=== PATIENT | male | born 1945 | race Caucasian/White ===

== ENCOUNTER 2020-09-24 17:24 | Outpatient (CLI) | payer MEDICARE, MEDICAID, SELFPAY ==
--- NOTE | ~2020-09-24 | CT_ITS ---
EXAMINATION: CT brain wo con EXAM DATE: 09/24/2020 18:10 INDICATION: R27.0 - Ataxia, unspecified. TECHNIQUE: Spiral CT of the head was performed without contrast. Axial, coronal and sagittal images were reviewed. The dose-length product (DLP) for this examination was 384.13 mGy-cm. The exposure w as tailored according to patient size, and iterative reconstruction (ASIR) was used as additional dos e reduction technique. Comparison is made to prior examination from 2007. FINDINGS: There is no acute intraparenchymal hemorrhage. No evidence of intraparenchymal brain mass lesion. No evidence of acute infarction. Please note that initial head CT has limited sensitivity f or small or acute infarctions. There is mild periventricular and subcortical hypodensity, nonspecific but probably related to small vessel ischemic disease. There is moderate prominence of the sulci a nd ventricles related to cerebral atrophy. There is intracranial carotid arteriosclerosis. There a re no extra-axial collections. There is no mass effect or midline shift. The orbits are unremarkabl e. Soft tissue is unremarkable. The visualized sinuses and mastoid air cells are well aerated. IMPRESSION: 1. No acute intracranial findings. 2. Chronic age related findings. Reviewed, dictated and finalized at location A.
--- NOTE | ~2020-09-24 | CT_ITS ---
EXAMINATION: CT cervical spine wo con DATE: 09/24/2020 18:10 INDICATION: Neck pain. TECHNIQUE: Computed tomography (CT) of the cervical spine was performed without intravenous contrast. Automated exposure control and iterative reconstruction technique were employed. The dose-length pro duct was 384.13 mGy-cm. COMPARISON: None FINDINGS: There is 4 degrees levocurvature of cervical spine. There is developmental anterior and pos terior fusion at C5-C6. There is interbody fusion at C2-C3. There is mild chronic anterior wedging of T1 vertebral body. There is mildly decreased disc height at C3-C4 and moderately decreased disc heig ht at C6-C7. The following disc levels are specifically discussed: C2-C3: There is ankylosis of the uncovertebral joints with mild left hypertrophy. There is ankylosis of the facet joints with mild left hypertrophy. There is mild left neural foraminal stenosis. There i s no central canal stenosis. C3-C4: There is severe bilateral uncovertebral joint osteoarthritis. There is severe bilateral facet joint osteoarthritis. There is mild right and moderate left neural foraminal stenosis. There is mild central canal stenosis. C4-C5: There is severe bilateral uncovertebral joint osteoarthritis. There is mild right and severe l eft facet joint osteoarthritis. There is mild right and moderate left neural foraminal stenosis. Ther e is mild central canal stenosis. C5-C6: There is ankylosis of the uncovertebral joints without hypertrophy. There is ankylosis of the facet joints without hypertrophy. There is no neural foraminal stenosis. There is no central canal st enosis. C6-C7: There is severe bilateral uncovertebral joint osteoarthritis. There is severe bilateral facet joint osteoarthritis. There is mild right and moderate left neural foraminal stenosis. There is mild central canal stenosis. C7-T1: There is mild bilateral uncovertebral joint osteoarthritis. There is moderate right and mild l eft facet joint osteoarthritis. There is no neural foraminal stenosis. There is no central canal sten osis. IMPRESSION: 1. Moderate cervical spondylosis. 2. Anterior and posterior fusion at C2-C3 and C5-C6. Reviewed, dictated and finalized at location A.
== END 2020-09-24 17:25 | disposition home or self-care (01) ==
LOC: ANHIMG 17:29
PROVIDERS: PCP Family Medicine; Visit Provider Family Medicine
DX: G89.29 Other chronic pain (principal); R27.0 Ataxia, unspecified; M54.2 Cervicalgia; M47.812 Spondylosis without myelopathy or radiculopathy, cervical region; Z98.1 Arthrodesis status
CPT/HCPCS: 70450; 72125

== ENCOUNTER → 2021-04-05 09:16 | Outpatient (CLI) | payer MEDICARE, MEDICAID, SELFPAY ==
[2021-04-05 21:56] LABS: SARS-CoV-2 RNA PCR Positive
== END ==
PROVIDERS: PCP Family Medicine; Visit Provider Family Medicine
DX: U07.1 COVID-19 (principal); J01.00 Acute maxillary sinusitis, unspecified
CPT/HCPCS: C9803; U0003; U0005

== ENCOUNTER 2022-12-03 12:08 | Outpatient (CLI) | payer MEDICARE, MEDICAID, SELFPAY ==
[2022-12-03 12:45] LABS: Hematocrit 35.8 % (42.0-52.0); Hemoglobin 11.5 g/dL (14.0-18.0); Mean Corpuscular HGB Conc 32.1 g/dl (32-36); Mean Corpuscular Hemoglobin 29.4 pg (26-34); Mean Corpuscular Volume 91.6 fl (80-100); Platelet Count Result 196 k/mm3 (150-375); Red Blood Count 3.91 M/mm3 (4.6-6.20); Red Cell Distribution Width 12.7 % (11.5-14.5); White Blood Count 7.2 K/mm3 (4.5-10.0)
== END 2022-12-03 12:09 | disposition home or self-care (01) ==
LOC: ANHLAB 12:11
PROVIDERS: PCP Family Medicine; Visit Provider Nurse Practitioner
DX: K92.1 Melena (principal)
CPT/HCPCS: 36415; 85027

== ENCOUNTER 2023-01-07 00:33 | Day surgery (SDC) | payer MEDICARE, MEDICAID, SELFPAY ==
[2022-12-25 13:34] VITALS: BMI 27.6
[2023-01-07 07:59] VITALS: BP 146/74; PULSE 102; RESP 20; TEMP 36.2; O2SAT 99
[2023-01-07] MEDS: LACTATED RINGERS 1,000 ML 150 ML IV CONT (08:21)
[2023-01-07 08:26] LABS: Glucose Point of Care 114 mg/dl (65-105)
--- NOTE | 2023-01-07 08:35 | WPDANESEPPF ---
Anes - Initial Pre Proc Eval Procedure: Operation Date: 01/07/23 09:15 Proposed Procedures p Esophagogastroduodenoscopy & Colonoscopy - Logan Chung MD Date/Time: 01/07/23 08:35 Surgeon: Logan Chung MD Pre Op Diagnosis: melena, diarrhea, Patient Data Age: 77 Gender: M Height: 1.83 m Weight: 88.8 kg Last Vital Signs Temp 97.2 F L 01/07/23 07:59 Pulse 102 H 01/07/23 07:59 Resp 20 01/07/23 07:59 BP 146/74 H 01/07/23 07:59 Pulse Ox 99 01/07/23 07:59 O2 Del Method Room Air 01/07/23 07:59 Allergies Allergy/AdvReac Type Severity Reaction Status Date / Time codeine Allergy Mild Unknown Verified 01/07/23 07:57 morphine AdvReac Drowsy Verified 01/07/23 07:57 Home Medications Medication Instructions Recorded Confirmed Type blood-glucose meter (Paperless Transaction ManagementTouch #1 ea 06/23/19 12/25/22 History Ultra2 Meter kit) losartan 100 mg tablet 100 mg PO . Q.p.m. 11/20/21 12/25/22 History albuterol sulfate 90 mcg/actuation 2 puff inhalation Q4H PRN 03/27/22 12/25/22 Rx aerosol inhaler (ProAir HFA) shortness of breath or wheezing #18 grams atorvastatin 40 mg tablet 40 mg PO DAILY #30 tabs 03/27/22 12/25/22 Rx blood sugar diagnostic #100 ea 03/27/22 12/25/22 Rx lancets 30 gauge (OneTouch Delica #100 ea 03/27/22 12/25/22 Rx Plus Lancet) needle (disp) 22 G 22 gauge x 1 #6 ea 03/27/22 12/03/22 Rx 1/2 (BD Regular Bevel Mobridge) syringe with needle 3 mL 21 gauge See Rx Instructions .Route 03/27/22 12/25/22 Rx x 1 1/2 (BD Luer-Jh Syringe) .COMPLEX #6 syringes syringe with needle 5 mL 22 x 1 #6 ea 03/27/22 12/03/22 Rx (BD Luer-Jh Syringe) blood-glucose sensor (Dexcom G6 #3 ea 05/29/22 12/25/22 Rx Sensor device) amlodipine 5 mg tablet 5 mg PO DAILY 07/14/22 12/25/22 History semaglutide 0.25 mg or 0.5 mg (2 0.5 mg (0.736 mL) subcut WEEKLY #6 07/22/22 12/25/22 Rx mg/3 mL) subcutaneous pen injector mL (Ozempic) tamsulosin 0.4 mg capsule 0.4 mg PO DAILY #30 caps 08/26/22 12/25/22 Rx mupirocin 2 % topical ointment 1 applic topical BID #22 grams 09/01/22 12/25/22 Rx lancets (Accu-Chek Softclix #200 ea 09/05/22 12/25/22 Rx Lancets) alprazolam 0.25 mg tablet 0.25 mg PO TID PRN anxiety #90 tabs 09/24/22 12/25/22 Rx duloxetine 60 mg capsule,delayed 60 mg PO . Q.a.m. #90 caps 10/20/22 12/25/22 Rx release memantine 10 mg tablet (Namenda) 10 mg PO QPM 10/20/22 12/25/22 History silver sulfadiazine 1 % topical 1 applic topical BID #50 grams 10/20/22 12/25/22 Rx cream (Silvadene) blood sugar diagnostic (Accu-Chek #200 ea 12/09/22 12/25/22 Rx Kierra Plus test strips) omeprazole 40 mg capsule,delayed 40 mg PO DAILY 12/09/22 12/25/22 History release oxycodone 5 mg tablet 5 - 10 mg PO Q4H PRN pain #180 tabs 12/17/22 12/25/22 Rx oxycodone myristate 36 mg capsule 36 mg PO Q12H #60 caps 12/17/22 12/25/22 Rx sprinkle extended release 12hr(DON'T CRUSH) (Xtampza ER) empagliflozin 25 mg tablet 25 mg PO DAILY 12/25/22 12/25/22 History (Jardiance) Laboratory Tests 01/07/23 08:23 POC Capillary Glucose 114 H mg/dl (65-105) Patient hx anesthesia problems: none Family hx anesthesia problems: none Results Review: All pre-operative results and documents have been reviewed as part of the pre-operative evaluation. [facility] Past Medical History Medical History (Updated 12/09/22 @ 21:09 by Justin Lange MD) Acute non-recurrent maxillary sinusitis Anemia hemoglobin 11.5 10/08/2022. At high risk for falls (~09/25/21) Ataxia Belching Benign paroxysmal positional vertigo due to bilateral vestibular disorder BMI 30.0-30.9,adult BMI 33.0-33.9,adult BMI 34.0-34.9,adult BMI 35.0-35.9,adult Candidiasis Chronic anxiety Chronic bilateral low back pain with bilateral sciatica Chronic depression Chronic ear pain Chronic midline thoracic back pain Chronic neck pain Complaint of melena Controlled diabetes mellitus, without long-term curr
--- NOTE | 2023-01-07 08:45 | PM.HPGS ---
History of Present Illness History of Present Illness Consent: Risks, benefits, and alternatives have been discussed and questions answered. Patient agrees to proceed with procedure. Chief complaint: melena, diarrhea, Narrative: Tyler Thomas is a 77 year old male with melena for 5 days about 1 month, now resolved. Also needs screening colonoscopy, last one 10 years ago. Never had EGD. Review of Systems Constitutional: Constitutional: Denies headache(s) and Denies weakness Eyes: Eyes: Denies blurry vision ENT: Reports Normal hearing present, Denies headache(s) and Denies neck pain Cardiovascular: Cardiovascular: Denies chest pain and Denies dyspnea Respiratory: Respiratory: Denies dyspnea Gastrointestinal: Gastrointestinal: Reports no additional gastrointestinal complaints Genitourinary: Genitourinary: Denies dysuria Musculoskeletal: Musculoskeletal: Denies neck pain Integumentary/Breasts: Skin/Breast: Denies dry skin Neurologic: Reports Normal hearing present, Denies headache(s) and Denies weakness Psychiatric: Psychiatric: Denies anxiety Endocrine: Endocrine: Denies change in body appearance Hematologic/Lymphatic: Hematologic/Lymphatic: Denies easy bleeding Allergic/Immunologic: Allergic/Immunologic: Denies urticaria [facility] Past Medical History Medical History (Updated 12/09/22 @ 21:09 by Justin Lange MD) Acute non-recurrent maxillary sinusitis Anemia hemoglobin 11.5 10/08/2022. At high risk for falls (~09/25/21) Ataxia Belching Benign paroxysmal positional vertigo due to bilateral vestibular disorder BMI 30.0-30.9,adult BMI 33.0-33.9,adult BMI 34.0-34.9,adult BMI 35.0-35.9,adult Candidiasis Chronic anxiety Chronic bilateral low back pain with bilateral sciatica Chronic depression Chronic ear pain Chronic midline thoracic back pain Chronic neck pain Complaint of melena Controlled diabetes mellitus, without long-term current use of insulin Glucose 103 with hemoglobin A1c 5.8 with Urine microalbumin ratio of 4 the in 09/27/2021. Glucose 127 on 03/28/2022. fasting glucose 111 with hemoglobin A1c 5.9 on 10/08/2022. Coronary artery disease involving [place] coronary artery without angina pectoris COVID-19 (03/11/20) COVID-19 (~03/30/21) 2nd episode of COVID-19 with positive test on 04/05/2021 Diabetes mellitus Diarrhea Dysphagia Elevated TSH (10/08/22) TSH elevated at 5.71 on 10/08/2022. Encounter for hepatitis C screening test for low risk patient (09/27/21) Hepatitis C screening was negative on 09/27/2021. Essential (primary) hypertension Starting 2004 Family hx of colon cancer Colonoscopy [address] Cristobal with diverticulosis and hemorrhoids. Gas bloat syndrome Gastro-esophageal reflux disease without esophagitis Hyperkalemia (03/28/22) potassium slightly high at 5.4 on 03/28/2022. Hypogonadism male No improvement with testosterone with current level low at 11 with free testosterone 1 without treatment on 10/08/2022 Male erectile dysfunction, unspecified Memory loss or impairment Mixed hyperlipidemia total cholesterol 118, triglycerides 119, HDL low at 28 and LDL 69 on 09/27/2021. Nocturia PSA normal at 0.18 On 09/27/2021. Obesity (BMI 30-39.9) Obesity (BMI 30.0-34.9) HIPOLITO on CPAP (~09/29/22) home sleep study on 09/29/2022 reveals HIPOLITO with an AHI of 11.1 with AHI of 24.7 in the supine position and oxygen saturation on 83%. Start a Pap at 6-18 cm of water pressure 10/02/2022. never started CPAP Pressure ulcer of right buttock, stage 2 (~10/20/22) 1.5 cm pressure ulcer right lower buttocks midline Renal insufficiency, mild (09/27/21) BUN 33, creatinine 1.56 with GFR 46 on 09/27/2021. BUN 48, creatinine 1.92 with GFR 35 on 03/28/2022. BUN 24, creatinine 1.31 with GFR 56 on 10/08/2022. Screening for diabetic retinopathy no retinopathy 09/09/2022. Seasonal allergic rhinitis Skin ulcer (~09/10/20) ulceration inside umbilicus Vitamin B12 deficiency anemia Level low at 377 with hemo
[2023-01-07] MEDS: BENZOCAINE (*SP) 60 ML SPRAY CAN (HURRICAINE) 1 SPRAY MUCOUS MEM (08:57)
--- NOTE | 2023-01-07 09:26 | SUR.OPER ---
EGD: [id number] COLON: Start: 907
[2023-01-07 09:30] VITALS: BP 92/47; PULSE 90; RESP 19; O2SAT 100
[2023-01-07 09:40] VITALS: BP 107/48; PULSE 86; RESP 22; O2SAT 100
[2023-01-07 09:50] VITALS: BP 132/63; PULSE 84; RESP 26; O2SAT 100
[2023-01-07 10:00] LABS: Glucose Point of Care 98 mg/dl (65-105)
== END 2023-01-07 10:02 | disposition home or self-care (01) ==
PROVIDERS: PCP Family Medicine; Visit Provider Internal Medicine Gastroenterology
PROC: 0DJ08ZZ Inspection of Upper Intestinal Tract, Via Natural or Artificial Opening Endoscopic (ICD-10-PCS; CPT 43235; principal; 2023-01-07 09:15)
DX: R19.7 Diarrhea, unspecified (principal); D12.2 Benign neoplasm of ascending colon; D12.0 Benign neoplasm of cecum; K57.30 Diverticulosis of large intestine without perforation or abscess without bleeding; K64.8 Other hemorrhoids; K21.9 Gastro-esophageal reflux disease without esophagitis; Z80.0 Family history of malignant neoplasm of digestive organs; E11.9 Type 2 diabetes mellitus without complications; I10 Essential (primary) hypertension; F41.9 Anxiety disorder, unspecified; F32.A Depression, unspecified; E78.2 Mixed hyperlipidemia; N28.9 Disorder of kidney and ureter, unspecified; E55.9 Vitamin D deficiency, unspecified; D51.9 Vitamin B12 deficiency anemia, unspecified; Z79.51 Long term (current) use of inhaled steroids; Z79.85 Long-term (current) use of injectable non-insulin antidiabetic drugs; Z79.84 Long term (current) use of oral hypoglycemic drugs; Z79.891 Long term (current) use of opiate analgesic
CPT/HCPCS: 45380; 45385; 43239; 82948; 88305; J2371; J2704; J7120

== ENCOUNTER 2023-03-02 11:45 | Emergency (ER) | payer MEDICARE, MEDICAID, SELFPAY ==
--- NOTE | ~2023-03-02 | XR_ITS ---
Left foot Technique: AP, oblique, and lateral views were obtained. Clinical History: Pain Findings: No acute fracture or dislocation is seen. Osseous alignment is anatomic. There is moderate degenerative change of the first tarsometatarsal joint. Soft tissues are unremarkable. Impression: Moderate degenerative change of the first tarsometatarsal joint. Reviewed, dictated and finalized at location . E IN WAITER/WAITRESS Impression: Moderate degenerative change of the first tarsometatarsal joint.
[2023-03-02 11:58] VITALS: BP 144/70; PULSE 79; RESP 16; TEMP 36.7; O2SAT 98
--- NOTE | 2023-03-02 12:07 | ED.GENADULT ---
HPI - General Adult General Chief complaint: Extremity Injury, Lower Stated complaint: Foot Pain Time Seen by Provider: 03/02/23 12:09 Source: patient, family, RN notes reviewed and old records reviewed Mode of arrival: ambulatory Limitations: no limitations History of Present Illness HPI narrative: 77-year-old male presents to [facility] accompanied by family member with complaints of continued pain behind his left big toe at first medial tarsometatarsal joint area with palpable tenderness and slight redness for the past 10 days. Patient reports that pain is aggravated by walking rates his pain as 7/10. Patient saw PCP and was given Prednisone for gout flare on the 11 of February for 7 days and completed prescription but pain has not resolved. Patient reports that he has taken some Tylenol also for his discomfort and is on daily pain medication for chronic back pain. MD complaint: left foot pain Onset (ago): day(s) (increased pain 10 days) Location: left and lower extremity (foot) Severity scale (1-10): 7 Pain Consistency: constant Treatments prior to arrival: other (completed Prednisone, Tylenol) Related Data Home Medications Medication Instructions Recorded Confirmed blood-glucose meter (OANDAuch #1 ea 06/23/19 12/25/22 Ultra2 Meter kit) losartan 100 mg tablet 100 mg PO . Q.p.m. 11/20/21 03/02/23 amlodipine 5 mg tablet 5 mg PO DAILY 07/14/22 03/02/23 memantine 10 mg tablet (Namenda) 10 mg PO QPM 10/20/22 03/02/23 omeprazole 40 mg capsule,delayed 40 mg PO DAILY 12/09/22 03/02/23 release sertraline 100 mg tablet 100 mg PO DAILY 03/02/23 03/02/23 sertraline 50 mg tablet 50 mg PO DAILY 03/02/23 03/02/23 Allergies Allergy/AdvReac Type Severity Reaction Status Date / Time codeine Allergy Mild Unknown Verified 03/02/23 11:52 morphine AdvReac Drowsy Verified 03/02/23 11:52 Review of Systems Review of Systems: CONSTITUTIONAL: Denies fever, chills, or sweats. EYES: Denies visual changes, redness, or discharge. ENT: Denies rhinorrhea, congestion, sore throat, or otalgia. CARDIOVASCULAR: Denies chest pain, palpitations, or edema. RESPIRATORY: Denies cough or dyspnea. GASTROINTESTINAL: Denies abdominal pain, nausea, vomiting, or diarrhea. GENITOURINARY: Denies dysuria or hematuria. SKIN: Denies rash or itching. MUSCULOSKELETAL: Reports chronic back pain,reports pain to left medial 1st toe joint, or myalgia. NEUROLOGIC: Denies headache, numbness, or weakness. PSYCHIATRIC: Reports history of anxiety or depression. All systems reviewed & are unremarkable except as noted in HPI and below PMFSH Past Medical History Medical History Acute non-recurrent maxillary sinusitis Anemia hemoglobin 11.5 10/08/2022. At high risk for falls (~09/25/21) Ataxia Belching Benign paroxysmal positional vertigo due to bilateral vestibular disorder BMI 30.0-30.9,adult BMI 33.0-33.9,adult BMI 34.0-34.9,adult BMI 35.0-35.9,adult Candidiasis Chronic anxiety Chronic bilateral low back pain with bilateral sciatica Chronic depression Chronic ear pain Chronic midline thoracic back pain Chronic neck pain Complaint of melena Controlled diabetes mellitus, without long-term current use of insulin Glucose 103 with hemoglobin A1c 5.8 with Urine microalbumin ratio of 4 the in 09/27/2021. Glucose 127 on 03/28/2022. fasting glucose 111 with hemoglobin A1c 5.9 on 10/08/2022. Coronary artery disease involving [place] coronary artery without angina pectoris COVID-19 (03/11/20) COVID-19 (~03/30/21) 2nd episode of COVID-19 with positive test on 04/05/2021 Diabetes mellitus Diarrhea Dysphagia normal EGD on 01/07/2023. Elevated TSH (10/08/22) TSH elevated at 5.71 on 10/08/2022. Encounter for hepatitis C screening test for low risk patient (09/27/21) Hepatitis C screening was negative on 09/27/2021. Essential (primary) hypertension Starting 2004 Family hx of colon cancer Colonoscopy 2012 with
== END 2023-03-02 13:20 | disposition home or self-care (01) ==
PROVIDERS: Emergency Provider Registered Nurse; PCP Family Medicine
DX: M25.572 Pain in left ankle and joints of left foot (principal); M19.072 Primary osteoarthritis, left ankle and foot; K21.9 Gastro-esophageal reflux disease without esophagitis; E78.2 Mixed hyperlipidemia; F41.9 Anxiety disorder, unspecified; F32.A Depression, unspecified; E11.9 Type 2 diabetes mellitus without complications; Z79.4 Long term (current) use of insulin; I25.10 Atherosclerotic heart disease of native coronary artery without angina pectoris; Z86.16 Personal history of COVID-19; I10 Essential (primary) hypertension; E66.9 Obesity, unspecified; Z68.27 Body mass index [BMI] 27.0-27.9, adult; D51.9 Vitamin B12 deficiency anemia, unspecified
CPT/HCPCS: 73630; 99213; G0463

== ENCOUNTER 2023-08-21 15:22 | Emergency (ER) | payer MEDICARE, MEDICAID, SELFPAY ==
[2023-08-21 15:35] VITALS: BP 115/61; PULSE 98; RESP 16; TEMP 36.3; O2SAT 99
--- NOTE | 2023-08-21 15:47 | ED.EXTPRO ---
HPI - Extremity Problem General Chief complaint: Extremity Problem,Nontraumatic Stated complaint: L FOOT INFECTION Time Seen by Provider: 08/21/23 15:33 Source: patient and RN notes reviewed Mode of arrival: ambulatory Limitations: no limitations History of Present Illness HPI Narrative: Patient presents today with a 2-3 week history of pain and injury to the left heel, plantar aspect. Believes he may have stepped on something when he got out of his bed to go to the restroom in the middle of the night. Reports symptoms have been worsening since onset. He takes oxycodone daily for his chronic back pain and states this is not helping with his acute pain. Patient does have a sales forecast analyst, Dr. Peralta in [place], but has not called for an appointment. History of diabetes, chronic kidney disease, chronic back pain Related Data Home Medications Medication Instructions Recorded Confirmed blood-glucose meter (OneTouch #1 ea 06/23/19 04/28/23 Ultra2 Meter kit) losartan 100 mg tablet 100 mg PO . Q.p.m. 11/20/21 08/21/23 memantine 10 mg tablet (Namenda) 10 mg PO QPM 10/20/22 08/21/23 sertraline 100 mg tablet 100 mg PO DAILY 03/02/23 08/21/23 Allergies Allergy/AdvReac Type Severity Reaction Status Date / Time codeine Allergy Mild Unknown Verified 08/21/23 15:30 morphine AdvReac Drowsy Verified 08/21/23 15:30 Review of Systems Review of Systems: CONSTITUTIONAL: Denies body aches, fever, chills, or sweats. EYES: Denies visual changes, redness, or discharge. ENT: Denies rhinorrhea, congestion, sore throat, or otalgia. CARDIOVASCULAR: Denies chest pain, palpitations, or edema. RESPIRATORY: Denies cough or dyspnea. GASTROINTESTINAL: Denies abdominal pain, nausea, vomiting, or diarrhea. GENITOURINARY: Denies dysuria or hematuria. SKIN: Wound to left foot MUSCULOSKELETAL: Denies back pain, joint pain, or myalgia. NEUROLOGIC: Denies headache, numbness, tingling, or weakness. PSYCH: Denies depression or anxiety. [facility] Past Medical History Medical History Acute non-recurrent maxillary sinusitis Anemia hemoglobin 11.5 10/08/2022. At high risk for falls (~09/25/21) Ataxia Belching Benign paroxysmal positional vertigo due to bilateral vestibular disorder Black stools BMI 30.0-30.9,adult BMI 33.0-33.9,adult BMI 34.0-34.9,adult BMI 35.0-35.9,adult Candidiasis Chronic anxiety Chronic bilateral low back pain with bilateral sciatica Chronic depression Chronic ear pain Chronic midline thoracic back pain Chronic neck pain Chronic pain in left foot Complaint of melena Controlled diabetes mellitus, without long-term current use of insulin Glucose 103 with hemoglobin A1c 5.8 with Urine microalbumin ratio of 4 the in 09/27/2021. Glucose 127 on 03/28/2022. fasting glucose 111 with hemoglobin A1c 5.9 on 10/08/2022. Coronary artery disease involving [place] coronary artery without angina pectoris COVID-19 (03/11/20) COVID-19 (~03/30/21) 2nd episode of COVID-19 with positive test on 04/05/2021 Diabetes mellitus Diarrhea Dysphagia normal EGD on 01/07/2023. Elevated TSH (10/08/22) TSH elevated at 5.71 on 10/08/2022. Encounter for hepatitis C screening test for low risk patient (09/27/21) Hepatitis C screening was negative on 09/27/2021. Essential (primary) hypertension Starting 2004 Family hx of colon cancer Colonoscopy [address] Cristobal with diverticulosis and hemorrhoids. Three small polyps , tubular adenomas, on colonoscopy 01/07/2023. Foot pain Gas bloat syndrome Gastro-esophageal reflux disease without esophagitis Hyperkalemia (03/28/22) potassium slightly high at 5.4 on 03/28/2022. Hypogonadism Hypogonadism male No improvement with testosterone . with current level low at 11 with free testosterone 1 without treatment on 10/08/2022. testosterone less than 10 with free testosterone 0.2 on 03/23/2023. Male erectile dysfunction, unspecified Memory loss or imp
== END 2023-08-21 15:52 | disposition home or self-care (01) ==
PROVIDERS: Emergency Provider Nurse Practitioner; PCP Family Medicine
DX: L84 Corns and callosities (principal); E11.9 Type 2 diabetes mellitus without complications; I25.10 Atherosclerotic heart disease of native coronary artery without angina pectoris; I10 Essential (primary) hypertension; K21.9 Gastro-esophageal reflux disease without esophagitis; E78.2 Mixed hyperlipidemia; E66.9 Obesity, unspecified; Z68.29 Body mass index [BMI] 29.0-29.9, adult; G47.33 Obstructive sleep apnea (adult) (pediatric); F41.9 Anxiety disorder, unspecified; F32.A Depression, unspecified
CPT/HCPCS: 99213; G0463

== ENCOUNTER 2024-07-27 09:29 | Outpatient (CLI) | payer MEDICARE, MEDICAID, SELFPAY ==
--- OUTSIDE RECORDS SUMMARY | 2024-07-27 09:40 | XMS_ITS | Clinical Summary ---
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:57 PM PCB DESIGNER Gender Identity Not on file Sexual Orientation Not on file Plan of Treatment Health Maintenance Due Date Last Done Comments Hepatitis C Virus (HCV) Screening 1945 TdaP Immunization 1945 Pneumococcal Immunization (5 0+ years) (1 of 1 - PCV) 1995 Zoster Immunization (1 of 2) 1995 Respiratory Syncytial Virus (RSV) Immunization (Adult) (1 - 1-dose 75+ series) 2020 Influenza Immunization (#1) 11/15/202312/14, 01/26/2013 SARS-COV-2 Immunization ( - season) 2023 Hepatitis B Immunization Aged Out No longer eligible based on patient's age to complete this topic Meningococcal Immunization (ACWY) Aged Out No longer eligible b ased on patient's age to complete this topic Rotavirus Immunization Aged Out No lo nger eligible based on patient's age to complete this topic
--- OUTSIDE RECORDS SUMMARY | 2024-07-27 09:40 | XMS_ITS ---
Author Organization [facility] Address [address] [place] [address] Care Team Providers Care Financial Reporting Consultant Name Role Phone Steven Montoya Unavailable [phone] SOCIAL HISTORY Sex Assigned At : Social History Observation Description Sex Assigned At Male Encounters Encounter Location Date Provider Diagnosis [place] [facility] 2043 [facility] 15 [place] [address] 06/15/2024 Steven Montoya PLAN OF TREATMENT Next Appt Details Provider Name:Steven Montoya , 08/24/2024 03:00:00 PM, [facility], [facility], [place], [address], Progress Notes * COREY PACHECODOB:1945 ( 79 yo M)Acc No.[id number]:06/15/2024 Progress Notes Patient: COREY PACHECO Provider: MD RYLAN, StaceyC.P, F.A.S.N. :1945 Age:79 Y Sex:Male Date:06/15/2024 Address:[address] [place] [address] Subjective: * Chief Complaints: * * Medical History: Objective: Assessment: Plan: * Treatment: * Billing Information: * Visit Code: * Procedure Codes: * Sign off status: Pending * Provider: MD RYLAN, Floyd.C.P, F.A.S.N. Date: 06/15/2024
--- OUTSIDE RECORDS SUMMARY | 2024-07-27 09:40 | XMS_ITS ---
Author Organization [facility] Address [address] [place] [address] Care Team Providers Care Roller Hand Name Role Phone JanMikeySteven Unavailable [phone] SOCIAL HISTORY Sex Assigned At : Social History Observation Description Sex Assigned At Male PROBLEMS Problem Type ICD Code Onset Dates Problem Status W/U Status Risk SNOMED Code Notes Problem Hyperkalemia (E87.5) Active confirmed Hyperkalemia (52535369) Problem Hypo-osmolality and hyponatremia (E87.1) Active confirmed Hypo-osmolality and or hyponatremia (389574544) Problem Post-traumatic stress disorder, unspecified (F43.10) Active confirmed Encounters Encounter Location Date Provider Diagnosis [place] [facility] 2043 [facility] 15 [place] [address] 06/22/2024 Steven Montoya Chronic kidney disea se, stage 3a N18.31 ; Essential hypertension I10 ; Unspecified systolic (congestive) heart failure I50.20 ; Renal osteodystrophy N25.0 ; Proteinuria, unspecified R80.9 ; Unspecified abdominal pain R10.9 ; Type 2 diabetes mellitus with hyperglycemia E11.65 ; Gastro-esophageal reflux disease without esophagitis K21.9 ; Hyperkalemia E87.5 ; Hypo-osmolality and hyponatremia E87.1 and Post-traumatic stress disorder, unspecified F43.10 ASSESSMENTS Encounter Date Diagnosis Assessment Notes Treatment Notes Treatment Clinical Notes [...] Post-traumatic stress disorder, unspecified (ICD-10 - F43.10) PLAN OF TREATMENT Next Appt Details Provider Name:Steven Jan , 08/24/2024 03:00:00 PM, [address], [facility] [place], Progress Notes * COREY PACHECODOB:1945 ( 79 yo M)Acc No.[id number]:06/22/2024 Progress Notes Patient: COREY PACHECO Provider: MD RYLAN, F.A.C.P, F.A.S.N. :1945 Age:79 Y Sex:Male Date:06/22/2024 Address:[address] [place] [address] Subjective: * Chief Complaints: * * Medical History: Objective: Assessment: * Assessment: 1. Chronic kidney disease, stage 3a - N18.31 (Primary) 2. Essential hypertension - I10 3. Unspecified systolic (congestive) heart failure - I50.20 4. Renal osteodystrophy - N25.0 5. Proteinuria, unspecified - R80.9 6. Unspecified abdominal pain - R10.9 7. Type 2 diabetes mellitus with hyperglycemia - E11.65 8. Gastro-esophageal reflux disease without esophagitis - K21.9 9. Hyperkalemia - E87.5 10. Hypo-osmolality and hyponatremia - E87.1 11. Post-traumatic stress disorder, unspecified - F43.10 Plan: * Treatment: * Billing Information: * Visit Code: 26129 Office Visit, Est Pt., Level 4. * Procedure Codes: * Sign off status: Pending * Provider: MD RYLAN, F.A.C.P, F.A.S.N. Date: 06/22/2024
--- OUTSIDE RECORDS SUMMARY | 2024-07-27 09:41 | XMS_ITS | Patient Health Record ---
Author Organization [facility] Office Address [address] [facility] [address] [place] [address] Care Team Providers Care Art Historian Name Role Phone Steven Montoya Unavailable [phone] REASON FOR REFERRAL No Information MEDICATIONS Medication SIG (Take, Route, Frequency, Duration) Notes Start Date End Date Status Calcitriol 0.25 MCG TAKE 1 CAPSULE BY MO UTH EVERY OTHER DAY for 30 Active Magnesium Oxide -Mg Supplement 400 (240 Mg) MG TAKE 1 TABLET BY MOUTH TWICE A DAY for 30 Active amLODIPine Besylate 2.5 MG 1 tablet Orally Once a day for 90 days 04/03/2023 Active Calcitriol 0.25 MCG 1 capsule Orally Onc e a day for 90 day(s) 04/20/2024 01/15/2025 Active Vitamin D (Ergocalciferol) 1.25 MG (31300 UT) TAKE 1 CAPSULE BY MOUTH EVERY OTHER WEEK for 28 Active Sodium Chloride 1 GM 1 tablet Orally onc e a day for 90 days 12/11/2023 09/06/2024 Active SOCIAL HISTORY Sex Assigned At : Social History Observation Description Sex Assigned At Male PROBLEMS Problem Type ICD Code Onset Dates Problem Status W/U Status Risk SNOMED Code Notes Problem Type 2 diabetes mellitus with hyperglycemia (E11.65) Active confirmed Hyperglycemia d ue to type 2 diabetes mellitus (301481142583587) Problem Hypo-osmolality and hyponatremia (E87.1) Active confirmed Hypo-osmolality and or hyponatremia (047557435) Problem Hyperkalemia (E87.5) Active confirmed Hyperkalemia (21788585) Problem Post-traumatic stress disorder, unspecified (F43.10) Active confirmed Post-traumatic stress disorder (95725514) Problem Unspecified systolic (congestive) heart failure (I50.20) Active confirmed Systolic heart failure (507189007) Problem Gastro-esophageal reflux disease without esophagitis (K21.9) Active confirmed Gastro-esophage al reflux disease without esophagitis (524147427) Problem Renal osteodystrophy (N25.0) Active confirmed Renal osteodystrophy (55189969) Problem Unspecified abdominal pain (R10.9) Active confirmed Abdominal pain (85155626) Problem Proteinuria, unspecified (R80.9) Active confirmed Proteinuria (13056114) Problem Essential hypertension (I10) Active confirmed Essential hypertension (72749892) Problem Chronic kidney disease, stage 3a (N18.31) Active confirmed Chronic kidney disease stage 3A (disorder) (191561486) Encounters Encounter Location Date Provider Diagnosis [facility] [address] [address] 09/16/2023 Steven Montoya Chronic kidney disea se, stage 3a N18.31 ; Essential hypertension I10 ; Heart failure, unspecified I50.9 ; Other proteinuria R80.8 ; Renal osteodystrophy N25.0 ; Proteinuria, unspecified R80.9 ; Unspecified abdominal pain R10.9 and Type 2 diabetes mellitus with hyperglycemia E11.65 [facility] [address] [address] 11/18/2023 Steven oMntoya [facility] [address] [address] 12/11/2023 Steven Montoya Chronic kidney disea se, stage 3a N18.31 ; Essential hypertension I10 ; Heart failure, unspecified I50.9 ; Other proteinuria R80.8 ; Renal osteodystrophy N25.0 ; Proteinuria, unspecified R80.9 ; Unspecified abdominal pain R10.9 and Type 2 diabetes mellitus with hyperglycemia E11.65 [facility] [address] [address] 02/26/2024 Steven Montoya [facility] [address] [address] 04/20/2024 Steven Montoya Chronic kidney disea se, stage 3a N18.31 ; Essential hypertension I10 ; Hypo-osmolality and hyponatremia E87.1 ; Unspecified systolic (congestive) heart failure I50.20 ; Glycosuria R81 ; Hyperkalemia E87.5 and Gastro-esophageal reflux disease without esophagitis K21.9 [facility] [address] [address] 06/15/2024 [facility] [address] [place] [address] 06/22/2024 Steven Montoya Chronic kidney disea se, stage 3a N18.31 ; Essential hypertension I10 ; Unspecified systolic (congestive) heart failure I50.20 ; Renal osteodystrophy N25.0 ; Proteinuria, unspecified R80.9 ; Unspecified abdominal pain R10.9 ; Type 2 diabetes mellitus with hyperglycemia E11.65 ; Gastro-esophageal reflux disease without esophagitis K21.9 ; Hyperkalemia E87.5 ; Hypo-osmolality and hyponatremia E87.1 and Post-traumatic stress disorder, unspecified F43.10 [facility] [place] [facility] [address] [place] [address] 02/08/2024 Steven Montoya [facility] [place] [facility] [address] [place] [address] 03/22/2024 Steven Montoya [facility] [address] [place] [address] 04/20/2024 Steven Montoya [facility] [address] [place] [address] 09/16/2023 Steven Montoya [facility] [place] [facility] [address] [place] [address] 12/11/2023 Steven Montoya ASSESSMENTS Encounter Date Diagnosis Assessment Notes Treatment Notes Treatment Clinical Notes Section Notes 09/16/2023 Chronic kidney disease, stage 3a (ICD-10 - N18.31) 12/11/2023 Chronic kidney disease, stage 3a (ICD-10 - N18.31) 04/20/2024 Essential hypertension (ICD-10 - I10) 04/20/2024 Chronic kidney disease, stage 3a (ICD-10 - N18.31) 06/22/2024 Chronic kidney disease, stage 3a (ICD-10 - N18.31) 06/22/2024 Essential hypertension (ICD-10 - I10) 12/11/2023 Essential hypertension (ICD-10 - I10) 04/20/2024 Hypo-osmolality and hyponatremia (ICD-10 - E87.1) 09/16/2023 Essential hypertension (ICD-10 - I10) 09/16/2023 Heart failure, unspecified (ICD-10 - I50.9) 04/20/2024 Unspecified systolic (congestive) heart failure (ICD-10 - I50.20) 12/11/2023 Heart failure, unspecified (ICD-10 - I50.9) 06/22/2024 Unspecified systolic (congestive) heart failure (ICD-10 - I50.20) 06/22/2024 Renal osteodystrophy (ICD-10 - N25.0) 04/20/2024 Glycosuria (ICD-10 - R81) 12/11/2023 Other proteinuria (ICD-10 - R80.8) 09/16/2023 Other proteinuria (ICD-10 - R80.8) 09/16/2023 Renal osteodystrophy (ICD-10 - N25.0) 12/11/2023 Renal osteodystrophy (ICD-10 - N25.0) 04/20/2024 Hyperkalemia (ICD-10 - E87.5) 06/22/2024 Proteinuria, unspecified (ICD-10 - R80.9) 06/22/2024 Unspecified abdominal pain (ICD-10 - R10.9) 04/20/2024 Gastro-esophageal reflux disease without esophagitis (ICD-10 - K21.9) 12/11/2023 Proteinuria, unspecified (ICD-10 - R80.9) 09/16/2023 Proteinuria, unspecified (ICD-10 - R80.9) 09/16/2023 Unspecified abdominal pain (ICD-10 - R10.9) 12/11/2023 Unspecified abdominal pain (ICD-10 - R10.9) 06/22/2024 Type 2 diabetes mellitus with hyperglycemia (ICD-10 - E11.65) 06/22/2024 Gastro-esophageal reflux disease without esophagitis (ICD-10 - K21.9) 12/11/2023 Type 2 diabetes mellitus with hyperglycemia (ICD-10 - E11.65) 09/16/2023 Type 2 diabetes mellitus with hyperglycemia (ICD-10 - E11.65) 06/22/2024 Hyperkalemia (ICD-10 - E87.5) 06/22/2024 Hypo-osmolality and hyponatremia (ICD-10 - E87.1) 06/22/2024 Post-traumatic stress disorder, unspecified (ICD-10 - F43.10) PLAN OF TREATMENT Next Appt Details Provider Name:Steven Montoya , 08/24/2024 03:00:00 PM, [address] [facility] [address], [place], [address],
--- OUTSIDE RECORDS SUMMARY | 2024-07-27 09:41 | XMS_ITS | Patient Health Record ---
Author Organization [facility] [place] Address [address] [place] [address] Care Team Providers Care Pressurised Container Filler Name Role Phone Maik Velazquez MD Primary Care Provider Kenyatta Ramos Unavailable [phone] Migration, Provider Unavailable Unavailable Allergies Allergen (clinical drug ingredient) Drug/Non Drug Allergy documented on EMR Reaction Allergy Type Onset Date Status morphine Morphine Unknown Drug Allergy 06/15/2023 Active Reason For Referral No Information Medications Medication SIG (Take, Route, Frequency, Duration) Notes Start Date End Date Status Omeprazole 40 MG Oral 06/15/2023 Ac tive Tamsulosin HCl 0.4 MG Oral 06/15/2023 Active LUER-CRHIS SYRINGE-NEEDLE 5 mL 22 gauge x 1 1/2 MISCELLANEOUS *Reorder from [employer] for eRx and Interaction Alerts* 06/15/2023 Active Myrbetriq 25 MG Oral 06/15/2023 Act aleksandra LORazepam 1 MG Oral 06/15/2023 Acti ve oxyCODONE HCl 5 MG Oral 06/15/2023 Active Silver sulfADIAZINE 1 % External 06/15/2023 Active Atorvastatin Calcium 40 MG Oral 06/15/2023 Active OneTouch Ultra In Vitro 06/15/2023 Acti ve Omeprazole 20 MG Oral 06/15/2023 Ac tive ONETOUCH DELICA PLUS LANCING DEVICE KIT *Reorder from [employer] for eRx and Interaction Alerts* 06/15/2023 Active Lisinopril 20 MG Oral 06/15/2023 Ac tive ALPRAZolam 0.25 MG Oral 06/15/2023 Active amLODIPine Besylate 10 MG Oral 06/15/2023 Active Testosterone 1 % (50 mg/5 gram) Transdermal *Pick strength-form from [employer] for eRX* 06/15/2023 Active Sertraline HCl 100 MG 1 tablet Orally Once a day for 30 days Active Carvedilol 25 MG Oral 06/15/2023 Ac tive Calcitriol 0.25 MCG Oral 06/15/2023 Active Memantine HCl 10 mg TAKE 1 TABLET BY MOUTH TWICE A DAY for 30 Active OneTouch Delica Plus [id number] 06/15/2023 Active Jardiance 25 MG Oral 06/15/2023 Act aleksandra Memantine HCl 10 MG 1 tablet Orally Once a day for 30 days GDR Active Mupirocin 2% External 06/15/2023 Active ProAir HFA 108 (90 Base) MCG/ACT Inhalation 06/15/2023 Active LUER-CHRIS SYRINGE-NEEDLE 3 mL 22 x 1 1/2 MISCELLANEOUS *Reorder from [employer] for eRx and Interaction Alerts* 06/15/2023 Active Diclofenac Sodium 1% Transdermal 06/15/2023 Active Ozempic (0.25 or 0.5 MG/DOSE) 2 MG/3ML Subcutaneous *Pick strength-form from [employer] for eRX* 06/15/2023 Active Xtampza ER 36 mg Oral 06/15/2023 Ac tive Meclizine HCl 25 MG Oral 06/15/2023 Active Finasteride 5 MG Oral 06/15/2023 Ac tive Sertraline HCl 100 mg TAKE 1 TABLET BY MOUTH DAILY for 30 Active DULoxetine HCl 30 mg TAKE 1 CAPSULE BY MOUTH DAILY for 30 Active tiZANidine HCl 4 MG Oral 06/15/2023 Active Losartan Potassium 100 MG Oral 06/15/2023 Active Trospium Chloride ER 60 mg Oral 06/15/2023 Active Immunizations Vaccine Route Administration Date Status Comme nts Influenza virus vaccine, quadrivalent (IIV4), split virus, 0.25 mL dosage Unknown 11/14/2020 Administered Influenza virus vaccine, quadrivalent (IIV4), split virus, 0.25 mL dosage Unknown 12/17/2021 Administered Moderna Covid-19 Vaccine 1st dose Unknown 09/03/2021 Ad ministered Touchtalent Covid-19 Vac cine 2nd dose Unknown 05/10/2020 Administered Pfizer Biontech Covid-19 Vac cine 2nd dose Unknown 05/31/2020 Administered Pfizer [employer]iontech Covid-19 Vac cine 2nd dose Unknown 12/21/2020 Administered Social History Sex Assigned At : Social History Observation Description Sex Assigned At Male Problems Problem Type SNOMED Code ICD Code Onset Dates Problem Status W/U Status Risk Notes Problem Primary insomnia (4798896) Primary insomnia (F51.01) Active confirmed Problem Alzheimer's disease with late onset (242937815) Alzheimer's disease with late onset (G30.1) Active confirmed Problem Generalized anxiety disorder (58806963) RHYS (generalized anxiety disorder) (F41.1) Active confirmed Problem Mild recurrent major depression (11165014) MDD (major depressive disorder), recurrent episode, mild (F33.0) Active confirmed Vital Signs Heart Rate 58 /min 05/12/2024 Respiratory Rate 16 /min 01/08/2024 Height-cm 182.88 cm 05/12/2024 Blood pressure diastolic 57 mm Hg 05/12/2024 Weight-kg 99.34 kg 05/12/2024 Height 72.00 in 05/12/2024 Blood pressure systolic 143 mm Hg 05/12/2024 Weight 219.0 lbs 05/12/2024 BMI 29.7 kg/m2 05/12/2024 Encounters Encounter Location Date Provider Diagnosis [facility] [place] [address] [address] 08/18/2023 Kenyatta Therolivia MDD (major depressive disorder), recurrent episode, mild F33.0 ; RHYS (generalized anxiety disorder) F41.1 and Primary insomnia F51.01 [facility] [address] [address] 01/08/2024 Kenyatta Therolivia MDD (major depressive disorder), recurrent episode, mild F33.0 ; RHYS (generalized anxiety disorder) F41.1 ; Primary insomnia F51.01 and Alzheimer's disease with late onset G30.1 [facility] [place] [address] [facility] [address] [place] [address] 04/01/2024 Kenyatta Thery [facility] [place] [address] [address] 05/12/2024 Kenyatta Moat MDD (major depressive disorder), recurrent episode, mild F33.0 ; RHYS (generalized anxiety disorder) F41.1 ; Primary insomnia F51.01 and Alzheimer's disease with late onset G30.1 [facility] [address] [place] [address] 08/01/2023 Provider Migration [facility] [address] [place] [address] 08/02/2023 Provider Migration [facility] [address] [place] [address] 11/11/2023 Kenyattalalit Mota RHYS (generalized anxiety disorder) F41.1 [facility] [address] [facility] [address] [place] [address] 11/12/2023 Kenyatta Therolivia RHYS (generalized anxiety disorder) F41.1 [facility] [address] [facility] [address] [place] [address] 11/18/2023 Kenyatta Thery [facility] [address] [facility] [address] [place] [address] 12/15/2023 Kenyatta Therolivia Primary insomnia F51.01 [facility] [address] [place] [address] 12/21/2023 Kenyatta Thery Primary insomnia F51.01 Assessments Encounter Date Diagnosis (ICD Code) Assessment Notes Treatment Notes Treatment Clinical Notes Section Notes 08/18/2023 RHYS (generalized anxiety disorder) (ICD-10 - F41.1) Learning About Generalized Anxiety Disorder material was published, Learning About Generalized Anxiety Disorder material was published continue medications Mild recurrent major depression - will GDR Cymbalta 30 mg a day- will monitor for depression and anxiety - may plan to titrate off Cymbalta to simplify and decrease number rx he is on- educated on rx discuss kidney disease and rx Zoloft 100 mg daily for depression and anxiety - GDR 04/17/23 LABS PCP AIMS= 13 Discussed movement disorder -right hand movement- will see neuroencouraged pt to discuss with neuro patient reported did not want to give patient rx for shakes r/t on many rx Discussed VMAT2 inhibitors and wants to wait to seen neuro. patient reported did not want to give patient rx for shakes r/t on many rx educated on all medications, benefits, side effects and risk, and educated on depression, anxiety, and , mood d/o and educated on compliance of medications, serotonin syndrome, appointment's, continue therapy discussion with patient about course of treatment and patient instructions. refer to therapy refer to PCP- RLS F33.0: Major depressive disorder, recurrent, mild DEPRESSION TREATMENT: duloxetine 60 mg capsule,delayed release - Take 1 capsule(s) every day by oral route in the morning for 30 days. Qty: (30) capsule Refills: 2 Pharmacy: [facility] sertraline 100 mg tablet - Take 1 tablet(s) every day by oral route in the morning for 30 days. Qty: (30) tablet Refills: 2 Pharmacy: [facility] 2. Generalized anxiety disorder -Zoloft 100 mg daily for depression and anxiety no control substance prescribed by [facility] 41.1: Generalized anxiety disorder 3. Primary degenerative dementia of the Alzheimer type, senile onset -hx Patient has looked into ortho assistant living [facility], [facility], [facility], [place] area and wants to stay where he is living at this time Care planning reviewed [facility] SLUMS= 20 Namenda 10 mg twice a day HX Aricept stopped at hospital and caused diarrhea discuss medications and taper down dose r/t number rx he is on and patient reported improved memory on rx G30.1: Alzheimer's disease with late onset memantine 10 mg tablet - Take 1 tablet(s) twice a day by oral route as directed for 30 days. Qty: (60) tablet Refills: 2 Pharmacy: [facility] 4. Insomnia disorder related to another mental disorder - patient reported not taking Melatonin 3 mg at bedtime related to sleep improved 5. Chronic post-traumatic stress disorder - educated on ways to avoid triggers [facility] F43.12: Post-traumatic stress disorder, chronic obtain labs PCP Refer to PCP - RLS 08/18/2023 MDD (major depressive disorder), recurrent episode, mild (ICD-10 - F33.0) continue medications Mild recurrent major depression - will GDR Cymbalta 30 mg a day- will monitor for depression and anxiety - may plan to titrate off Cymbalta to simplify and decrease number rx he is on- educated on rx discuss kidney disease and rx Zoloft 100 mg daily for depression and anxiety - GDR 04/17/23 LABS PCP AIMS= 13 Discussed movement disorder -right hand movement- will see neuroencouraged pt to discuss with neuro patient reported did not want to give patient rx for shakes r/t on many rx Discussed VMAT2 inhibitors and wants to wait to seen neuro. patient reported did not want to give patient rx for shakes r/t on many rx educated on all medications, benefits, side effects and risk, and educated on depression, anxiety, and , mood d/o and educated on compliance of medications, serotonin syndrome, appointment's, continue therapy discussion with patient about course of treatment and patient instructions. refer to therapy refer to PCP- RLS F33.0: Major depressive disorder, recurrent, mild DEPRESSION TREATMENT: duloxetine 60 mg capsule,delayed release - Take 1 capsule(s) every day by oral route in the morning for 30 days. Qty: (30) capsule Refills: 2 Pharmacy: [facility] sertraline 100 mg tablet - Take 1 tablet(s) every day by oral route in the morning for 30 days. Qty: (30) tablet Refills: 2 Pharmacy: [facility] 2. Generalized anxiety disorder -Zoloft 100 mg daily for depression and anxiety no control substance prescribed by [facility] 41.1: Generalized anxiety disorder 3. Primary degenerative dementia of the Alzheimer type, senile onset -hx Patient has looked into ortho assistant living [facility], [facility], [facility], [place] area and wants to stay where he is living at this time Care planning reviewed [facility] SLUMS= 20 Namenda 10 mg twice a day HX Aricept stopped at hospital and caused diarrhea discuss medications and taper down dose r/t number rx he is on and patient reported improved memory on rx G30.1: Alzheimer's disease with late onset memantine 10 mg tablet - Take 1 tablet(s) twice a day by oral route as directed for 30 days. Qty: (60) tablet Refills: 2 Pharmacy: [facility] 4. Insomnia disorder related to another mental disorder - patient reported not taking Melatonin 3 mg at bedtime related to sleep improved 5. Chronic post-traumatic stress disorder - educated on ways to avoid triggers [facility] - [facility] F43.12: Post-traumatic stress disorder, chronic obtain labs PCP Refer to PCP - RLS , Learning About Depression material was published, Learning About Depression material was published HX Aricept stopped r/t diarrhea decrease Cymblata 30 mg daily 08/18/23 continue medications Mild recurrent major depression - will GDR Cymbalta 30 mg a day- will monitor for depression and anxiety - may plan to titrate off Cymbalta to simplify and decrease number rx he is on- educated on rx discuss kidney disease and rx Zoloft 100 mg daily for depression and anxiety - GDR 04/17/23 LABS PCP AIMS= 13 Discussed movement disorder -right hand movement- will see neuroencouraged pt to discuss with neuro patient reported did not want to give patient rx for shakes r/t on many rx Discussed VMAT2 inhibitors and wants to wait to seen neuro. patient reported did not want to give patient rx for shakes r/t on many rx educated on all medications, benefits, side effects and risk, and educated on depression, anxiety, and , mood d/o and educated on compliance of medications, serotonin syndrome, appointment's, continue therapy discussion with patient about course of treatment and patient instructions. refer to therapy refer to PCP- RLS F33.0: Major depressive disorder, recurrent, mild DEPRESSION TREATMENT: duloxetine 60 mg capsule,delayed release - Take 1 capsule(s) every day by oral route in the morning for 30 days. Qty: (30) capsule Refills: 2 Pharmacy: [facility] sertraline 100 mg tablet - Take 1 tablet(s) every day by oral route in the morning for 30 days. Qty: (30) tablet Refills: 2 Pharmacy: [facility] 2. Generalized anxiety disorder -Zoloft 100 mg daily for depression and anxiety no control substance prescribed by [facility] 41.1: Generalized anxiety disorder 3. Primary degenerative dementia of the Alzheimer type, senile onset -hx Patient has looked into ortho assistant living [facility], [facility], [facility], [place] area and wants to stay where he is living at this time Care planning reviewed [facility] SLUMS= 20 Namenda 10 mg twice a day HX Aricept stopped at hospital and caused diarrhea discuss medications and taper down dose r/t number rx he is on and patient reported improved memory on rx G30.1: Alzheimer's disease with late onset memantine 10 mg tablet - Take 1 tablet(s) twice a day by oral route as directed for 30 days. Qty: (60) tablet Refills: 2 Pharmacy: [facility] 4. Insomnia disorder related to another mental disorder - patient reported not taking Melatonin 3 mg at bedtime related to sleep improved 5. Chronic post-traumatic stress disorder - educated on ways to avoid triggers therapy - see [facility] F43.12: Post-traumatic stress disorder, chronic obtain labs PCP Refer to PCP - RLS 11/11/2023 RHYS (generalized anxiety disorder) (ICD-10 - F41.1) 11/12/2023 RHYS (generalized anxiety disorder) (ICD-10 - F41.1) 12/15/2023 Primary insomnia (ICD-10 - F51.01) 12/21/2023 Primary insomnia (ICD-10 - F51.01) 01/08/2024 RHYS (generalized anxiety disorder) (ICD-10 - F41.1) Learning About Generalized Anxiety Disorder material was published, Learning About Generalized Anxiety Disorder material was published continue medications Mild recurrent major depression - 10/06 GDR Cymbalta 30 mg a day- will monitor for depression and anxiety - may plan to titrate off Cymbalta to simplify and decrease number rx he is on- educated on rx discuss kidney disease rx Zoloft 100 mg daily for depression and anxiety - GDR 04/17/23 LABS PCP AIMS= 13 10/06 Discussed movement disorder -right hand movement- will see neuroencouraged pt to discuss with neuro patient reported did not want to give patient rx for shakes r/t on many rx Discussed VMAT2 inhibitors and wants to wait to seen neuro. patient reported did not want to give patient rx for shakes r/t on many rx educated on all medications, benefits, side effects and risk, and educated on depression, anxiety, and , mood d/o and educated on compliance of medications, serotonin syndrome, appointment's, continue therapy discussion with patient about course of treatment and patient instructions. refer to therapy refer to PCP- RLS : [facility] 2. Generalized anxiety disorder -Zoloft 100 mg daily for depression and anxiety no control substance prescribed by [facility] 3. Primary degenerative dementia of the Alzheimer type, senile onset -hx Patient has looked into ortho assistant living [facility], [facility], [facility], [place] area and wants to stay where he is living at this time Care planning reviewed [facility] SLUMS= 10/06 Namenda 10 mg twice a day HX Aricept stopped at hospital and caused diarrhea discuss medications and taper down dose r/t number rx he is on and patient reported improved memory on rx Pharmacy: [facility] 4. Insomnia disorder related to another mental disorder - patient reported not taking Melatonin 3 mg at bedtime related to sleep improved 5. Chronic post-traumatic stress disorder - educated on ways to avoid triggers [facility] obtain labs PCP Refer to PCP - RLS 01/08/2024 MDD (major depressive disorder), recurrent episode, mild (ICD-10 - F33.0) continue medications Mild recurrent major depression - 10/06 GDR Cymbalta 30 mg a day- will monitor for depression and anxiety - may plan to titrate off Cymbalta to simplify and decrease number rx he is on- educated on rx discuss kidney disease rx Zoloft 100 mg daily for depression and anxiety - GDR 04/17/23 LABS PCP AIMS= 13 10/06 Discussed movement disorder -right hand movement- will see neuroencouraged pt to discuss with neuro patient reported did not want to give patient rx for shakes r/t on many rx Discussed VMAT2 inhibitors and wants to wait to seen neuro. patient reported did not want to give patient rx for shakes r/t on many rx educated on all medications, benefits, side effects and risk, and educated on depression, anxiety, and , mood d/o and educated on compliance of medications, serotonin syndrome, appointment's, continue therapy discussion with patient about course of treatment and patient instructions. refer to therapy refer to PCP- RLS : [facility] 2. Generalized anxiety disorder -Zoloft 100 mg daily for depression and anxiety no control substance prescribed by [facility] 3. Primary degenerative dementia of the Alzheimer type, senile onset -hx Patient has looked into ortho assistant living [facility], [facility], [facility], [place] area and wants to stay where he is living at this time Care planning reviewed [facility] SLUMS= 10/06 Namenda 10 mg twice a day HX Aricept stopped at hospital and caused diarrhea discuss medications and taper down dose r/t number rx he is on and patient reported improved memory on rx Pharmacy: [facility] 4. Insomnia disorder related to another mental disorder - patient reported not taking Melatonin 3 mg at bedtime related to sleep improved 5. Chronic post-traumatic stress disorder - educated on ways to avoid triggers [facility] obtain labs PCP Refer to PCP - RLS 05/12/2024 MDD (major depressive disorder), recurrent episode, mild (ICD-10 - F33.0) continue medications 1. major depression - D/C Cymbalta 30 mg a day- will monitor for depression and anxiety - Patient reported stage 3 kidney disease and requested to come off rx discuss kidney disease rx Zoloft 100 mg daily for depression and anxiety - GDR 04/17/23 LABS PCP AIMS= 13 10/06 Discussed movement disorder -right hand movement- will see neuroencouraged pt to discuss with neuro patient reported did not want to give patient rx for shakes r/t on many rx Discussed VMAT2 inhibitors and wants to wait to seen neuro. patient reported did not want to give patient rx for shakes r/t on many rx educated on all medications, benefits, side effects and risk, and educated on depression, anxiety, and , mood d/o and educated on compliance of medications, serotonin syndrome, appointment's, continue therapy discussion with patient about course of treatment and patient instructions. refer to therapy refer to PCP- RLS : [facility] 2. Generalized anxiety disorder -Zoloft 100 mg daily for depression and anxiety no control substance prescribed by [facility] 3. Primary degenerative dementia of the Alzheimer type, senile onset -hx Patient has looked into ortho assistant living [facility], [facility], [facility], [place] area and wants to stay where he is living at this time Care planning reviewed [facility] SLUMS= 20 10/06 SLUMS= 28 05/12/24 patient would like to decrease Namenda 10 mg daily- kidney disease HX Aricept stopped at hospital and caused diarrhea discuss medications and taper down dose r/t number rx he is on and patient reported improved memory on rx Pharmacy: [facility] 4. Insomnia disorder related to another mental disorder - patient reported not taking Melatonin 3 mg at bedtime related to sleep improved 5. Chronic post-traumatic stress disorder - educated on ways to avoid triggers [facility] - [facility] 6. Elevated Blood pressure educated on healthy b/p 120/80 monitor b/p at home refer to PCP, Urgent care/ER heart healthy diet and excise limit salt intake limit soda intake and caffiene increase water obtain labs PCP Refer to PCP - RLS 05/12/2024 RHYS (generalized anxiety disorder) (ICD-10 - F41.1) Learning About Generalized Anxiety Disorder material was published, Learning About Generalized Anxiety Disorder material was published continue medications 1. major depression - D/C Cymbalta 30 mg a day- will monitor for depression and anxiety - Patient reported stage 3 kidney disease and requested to come off rx discuss kidney disease rx Zoloft 100 mg daily for depression and anxiety - GDR 04/17/23 LABS PCP AIMS= 13 10/06 Discussed movement disorder -right hand movement- will see neuroencouraged pt to discuss with neuro patient reported did not want to give patient rx for shakes r/t on many rx Discussed VMAT2 inhibitors and wants to wait to seen neuro. patient reported did not want to give patient rx for shakes r/t on many rx educated on all medications, benefits, side effects and risk, and educated on depression, anxiety, and , mood d/o and educated on compliance of medications, serotonin syndrome, appointment's, continue therapy discussion with patient about course of treatment and patient instructions. refer to therapy refer to PCP- RLS : [facility] 2. Generalized anxiety disorder -Zoloft 100 mg daily for depression and anxiety no control substance prescribed by [facility] 3. Primary degenerative dementia of the Alzheimer type, senile onset -hx Patient has looked into ortho assistant living [facility], [facility], [facility], [place] area and wants to stay where he is living at this time Care planning reviewed [facility] SLUMS= 20 10/06 SLUMS= 28 05/12/24 patient would like to decrease Namenda 10 mg daily- kidney disease HX Aricept stopped at hospital and caused diarrhea discuss medications and taper down dose r/t number rx he is on and patient reported improved memory on rx Pharmacy: [facility] 4. Insomnia disorder related to another mental disorder - patient reported not taking Melatonin 3 mg at bedtime related to sleep improved 5. Chronic post-traumatic stress disorder - educated on ways to avoid triggers [facility] - [facility] 6. Elevated Blood pressure educated on healthy b/p 120/80 monitor b/p at home refer to PCP, Urgent care/ER heart healthy diet and excise limit salt intake limit soda intake and caffiene increase water obtain labs PCP Refer to PCP - RLS 01/08/2024 Primary insomnia (ICD-10 - F51.01) Insomnia: Care Instructions material was published, Learning About Sleeping Well material was published, Insomnia: Care Instructions material was published, Learning About Sleeping Well material was published continue medications Mild recurrent major depression - 10/06 GDR Cymbalta 30 mg a day- will monitor for depression and anxiety - may plan to titrate off Cymbalta to simplify and decrease number rx he is on- educated on rx discuss kidney disease rx Zoloft 100 mg daily for depression and anxiety - GDR 04/17/23 LABS PCP AIMS= 13 10/06 Discussed movement disorder -right hand movement- will see neuroencouraged pt to discuss with neuro patient reported did not want to give patient rx for shakes r/t on many rx Discussed VMAT2 inhibitors and wants to wait to seen neuro. patient reported did not want to give patient rx for shakes r/t on many rx educated on all medications, benefits, side effects and risk, and educated on depression, anxiety, and , mood d/o and educated on compliance of medications, serotonin syndrome, appointment's, continue therapy discussion with patient about course of treatment and patient instructions. refer to therapy refer to PCP- RLS : [facility] 2. Generalized anxiety disorder -Zoloft 100 mg daily for depression and anxiety no control substance prescribed by SONY 3. Primary degenerative dementia of the Alzheimer type, senile onset -hx Patient has looked into ortho assistant living [facility], [facility], [facility], [place] area and wants to stay where he is living at this time Care planning reviewed [facility] SLUMS= 20 10/06 Namenda 10 mg twice a day HX Aricept stopped at hospital and caused diarrhea discuss medications and taper down dose r/t number rx he is on and patient reported improved memory on rx Pharmacy: [facility] 4. Insomnia disorder related to another mental disorder - patient reported not taking Melatonin 3 mg at bedtime related to sleep improved 5. Chronic post-traumatic stress disorder - educated on ways to avoid triggers therapy - see [facility] group obtain labs PCP Refer to PCP - RLS 08/18/2023 Primary insomnia (ICD-10 - F51.01) Insomnia: Care Instructions material was published, Learning About Sleeping Well material was published, Insomnia: Care Instructions material was published, Learning About Sleeping Well material was published continue medications Mild recurrent major depression - will GDR Cymbalta 30 mg a day- will monitor for depression and anxiety - may plan to titrate off Cymbalta to simplify and decrease number rx he is on- educated on rx discuss kidney disease and rx Zoloft 100 mg daily for depression and anxiety - GDR 04/17/23 LABS PCP AIMS= 13 Discussed movement disorder -right hand movement- will see neuroencouraged pt to discuss with neuro patient reported did not want to give patient rx for shakes r/t on many rx Discussed VMAT2 inhibitors and wants to wait to seen neuro. patient reported did not want to give patient rx for shakes r/t on many rx educated on all medications, benefits, side effects and risk, and educated on depression, anxiety, and , mood d/o and educated on compliance of medications, serotonin syndrome, appointment's, continue therapy discussion with patient about course of treatment and patient instructions. refer to therapy refer to PCP- RLS F33.0: Major depressive disorder, recurrent, mild DEPRESSION TREATMENT: duloxetine 60 mg capsule,delayed release - Take 1 capsule(s) every day by oral route in the morning for 30 days. Qty: (30) capsule Refills: 2 Pharmacy: [facility] sertraline 100 mg tablet - Take 1 tablet(s) every day by oral route in the morning for 30 days. Qty: (30) tablet Refills: 2 Pharmacy: [facility] 2. Generalized anxiety disorder -Zoloft 100 mg daily for depression and anxiety no control substance prescribed by [facility] 41.1: Generalized anxiety disorder 3. Primary degenerative dementia of the Alzheimer type, senile onset -hx Patient has looked into ortho assistant living [facility], [facility], [facility], [place] area and wants to stay where he is living at this time Care planning reviewed [facility] SLUMS= 20 Namenda 10 mg twice a day HX Aricept stopped at hospital and caused diarrhea discuss medications and taper down dose r/t number rx he is on and patient reported improved memory on rx G30.1: Alzheimer's disease with late onset memantine 10 mg tablet - Take 1 tablet(s) twice a day by oral route as directed for 30 days. Qty: (60) tablet Refills: 2 Pharmacy: [facility] 4. Insomnia disorder related to another mental disorder - patient reported not taking Melatonin 3 mg at bedtime related to sleep improved 5. Chronic post-traumatic stress disorder - educated on ways to avoid triggers [facility] - [facility] F43.12: Post-traumatic stress disorder, chronic obtain labs PCP Refer to PCP - RLS 01/08/2024 Alzheimer's disease with late onset (ICD-10 - G30.1) continue medications Mild recurrent major depression - 10/06 GDR Cymbalta 30 mg a day- will monitor for depression and anxiety - may plan to titrate off Cymbalta to simplify and decrease number rx he is on- educated on rx discuss kidney disease rx Zoloft 100 mg daily for depression and anxiety - GDR 04/17/23 LABS PCP AIMS= 13 10/06 Discussed movement disorder -right hand movement- will see neuroencouraged pt to discuss with neuro patient reported did not want to give patient rx for shakes r/t on many rx Discussed VMAT2 inhibitors and wants to wait to seen neuro. patient reported did not want to give patient rx for shakes r/t on many rx educated on all medications, benefits, side effects and risk, and educated on depression, anxiety, and , mood d/o and educated on compliance of medications, serotonin syndrome, appointment's, continue therapy discussion with patient about course of treatment and patient instructions. refer to therapy refer to PCP- RLS : [facility] 2. Generalized anxiety disorder -Zoloft 100 mg daily for depression and anxiety no control substance prescribed by SONY 3. Primary degenerative dementia of the Alzheimer type, senile onset -hx Patient has looked into ortho assistant living [facility], [facility], [facility], [place] area and wants to stay where he is living at this time Care planning reviewed [facility] SLUMS= 20 10/06 Namenda 10 mg twice a day HX Aricept stopped at hospital and caused diarrhea discuss medications and taper down dose r/t number rx he is on and patient reported improved memory on rx Pharmacy: [facility] 4. Insomnia disorder related to another mental disorder - patient reported not taking Melatonin 3 mg at bedtime related to sleep improved 5. Chronic post-traumatic stress disorder - educated on ways to avoid triggers therapy - see [facility] obtain labs PCP Refer to PCP - RLS 05/12/2024 Primary insomnia (ICD-10 - F51.01) Insomnia: Care Instructions material was published, Learning About Sleeping Well material was published, Insomnia: Care Instructions material was published, Learning About Sleeping Well material was published continue medications 1. major depression - D/C Cymbalta 30 mg a day- will monitor for depression and anxiety - Patient reported stage 3 kidney disease and requested to come off rx discuss kidney disease rx Zoloft 100 mg daily for depression and anxiety - GDR 04/17/23 LABS PCP AIMS= 13 10/06 Discussed movement disorder -right hand movement- will see neuroencouraged pt to discuss with neuro patient reported did not want to give patient rx for shakes r/t on many rx Discussed VMAT2 inhibitors and wants to wait to seen neuro. patient reported did not want to give patient rx for shakes r/t on many rx educated on all medications, benefits, side effects and risk, and educated on depression, anxiety, and , mood d/o and educated on compliance of medications, serotonin syndrome, appointment's, continue therapy discussion with patient about course of treatment and patient instructions. refer to therapy refer to PCP- RLS : [facility] 2. Generalized anxiety disorder -Zoloft 100 mg daily for depression and anxiety no control substance prescribed by SONY 3. Primary degenerative dementia of the Alzheimer type, senile onset -hx Patient has looked into ortho assistant living [facility], [facility], [facility], [place] area and wants to stay where he is living at this time Care planning reviewed [facility] SLUMS= 20 10/06 SLUMS= 28 05/12/24 patient would like to decrease Namenda 10 mg daily- kidney disease HX Aricept stopped at hospital and caused diarrhea discuss medications and taper down dose r/t number rx he is on and patient reported improved memory on rx Pharmacy: [facility] 4. Insomnia disorder related to another mental disorder - patient reported not taking Melatonin 3 mg at bedtime related to sleep improved 5. Chronic post-traumatic stress disorder - educated on ways to avoid triggers therapy - see [facility] 6. Elevated Blood pressure educated on healthy b/p 120/80 monitor b/p at home refer to PCP, Urgent care/ER heart healthy diet and excise limit salt intake limit soda intake and caffiene increase water obtain labs PCP Refer to PCP - RLS 05/12/2024 Alzheimer's disease with late onset (ICD-10 - G30.1) continue medications 1. major depression - D/C Cymbalta 30 mg a day- will monitor for depression and anxiety - Patient reported stage 3 kidney disease and requested to come off rx discuss kidney disease rx Zoloft 100 mg daily for depression and anxiety - GDR 04/17/23 LABS PCP AIMS= 13 10/06 Discussed movement disorder -right hand movement- will see neuroencouraged pt to discuss with neuro patient reported did not want to give patient rx for shakes r/t on many rx Discussed VMAT2 inhibitors and wants to wait to seen neuro. patient reported did not want to give patient rx for shakes r/t on many rx educated on all medications, benefits, side effects and risk, and educated on depression, anxiety, and , mood d/o and educated on compliance of medications, serotonin syndrome, appointment's, continue therapy discussion with patient about course of treatment and patient instructions. refer to therapy refer to PCP- RLS : [facility] 2. Generalized anxiety disorder -Zoloft 100 mg daily for depression and anxiety no control substance prescribed by SONY 3. Primary degenerative dementia of the Alzheimer type, senile onset -hx Patient has looked into ortho assistant living [facility], [facility], [facility], [place] area and wants to stay where he is living at this time Care planning reviewed [facility] SLUMS= 20 10/06 SLUMS= 28 05/12/24 patient would like to decrease Namenda 10 mg daily- kidney disease HX Aricept stopped at hospital and caused diarrhea discuss medications and taper down dose r/t number rx he is on and patient reported improved memory on rx Pharmacy: [facility] 4. Insomnia disorder related to another mental disorder - patient reported not taking Melatonin 3 mg at bedtime related to sleep improved 5. Chronic post-traumatic stress disorder - educated on ways to avoid triggers therapy - [facility] 6. Elevated Blood pressure educated on healthy b/p 120/80 monitor b/p at home refer to PCP, Urgent care/ER heart healthy diet and excise limit salt intake limit soda intake and caffiene increase water obtain labs PCP Refer to PCP - RLS 01/08/2024 Other referral to the local chapter or national office of the Alzheimer's Association ( ; http://www.alz.org ), the Alzheimer's Disease Education and Referral Center (ADEAR) ( ; http://www.robin.nih .gov/Alzheimers/), continue medications Mild recurrent major depression - 10/06 GDR Cymbalta 30 mg a day- will monitor for depression and anxiety - may plan to titrate off Cymbalta to simplify and decrease number rx he is on- educated on rx discuss kidney disease rx Zoloft 100 mg daily for depression and anxiety - GDR 04/17/23 LABS PCP AIMS= 13 10/06 Discussed movement disorder -right hand movement- will see neuroencouraged pt to discuss with neuro patient reported did not want to give patient rx for shakes r/t on many rx Discussed VMAT2 inhibitors and wants to wait to seen neuro. patient reported did not want to give patient rx for shakes r/t on many rx educated on all medications, benefits, side effects and risk, and educated on depression, anxiety, and , mood d/o and educated on compliance of medications, serotonin syndrome, appointment's, continue therapy discussion with patient about course of treatment and patient instructions. refer to therapy refer to PCP- RLS : [facility] 2. Generalized anxiety disorder -Zoloft 100 mg daily for depression and anxiety no control substance prescribed by SONY 3. Primary degenerative dementia of the Alzheimer type, senile onset -hx Patient has looked into ortho assistant living [facility], [facility], [facility], [place] area and wants to stay where he is living at this time Care planning reviewed [facility] SLUMS= 20 10/06 Namenda 10 mg twice a day HX Aricept stopped at hospital and caused diarrhea discuss medications and taper down dose r/t number rx he is on and patient reported improved memory on rx Pharmacy: [facility] 4. Insomnia disorder related to another mental disorder - patient reported not taking Melatonin 3 mg at bedtime related to sleep improved 5. Chronic post-traumatic stress disorder - educated on ways to avoid triggers therapy - [facility] obtain labs PCP Refer to PCP - RLS 05/12/2024 Other referral to the local chapter or national office of the Alzheimer's Association ( ; http://www.alz.org ), the Alzheimer's Disease Education and Referral Center (ADEAR) ( ; http://www.robin.nih .gov/Alzheimers/), referral to the local chapter or national office of the Alzheimer's Association ( ; http://www.alz.org ), the Alzheimer's Disease Education and Referral Center (ADEFL) ( ; http://www.robin.nih .gov/Alzheimers/), Notes: referral to the local chapter or national office of the Alzheimer's Association ( ; http://www.alz.org ), the Alzheimer's Disease Education and Referral Center (ADEFL) ( ; http://www.robin.nih .gov/Alzheimers/), continue medications 1. major depression - D/C Cymbalta 30 mg a day- will monitor for depression and anxiety - Patient reported stage 3 kidney disease and requested to come off rx discuss kidney disease rx Zoloft 100 mg daily for depression and anxiety - GDR 04/17/23 LABS PCP AIMS= 13 10/06 Discussed movement disorder -right hand movement- will see neuroencouraged pt to discuss with neuro patient reported did not want to give patient rx for shakes r/t on many rx Discussed VMAT2 inhibitors and wants to wait to seen neuro. patient reported did not want to give patient rx for shakes r/t on many rx educated on all medications, benefits, side effects and risk, and educated on depression, anxiety, and , mood d/o and educated on compliance of medications, serotonin syndrome, appointment's, continue therapy discussion with patient about course of treatment and patient instructions. refer to therapy refer to PCP- RLS : [facility] 2. Generalized anxiety disorder -Zoloft 100 mg daily for depression and anxiety no control substance prescribed by SONY 3. Primary degenerative dementia of the Alzheimer type, senile onset -hx Patient has looked into ortho assistant living [facility], [facility], [facility], [place] area and wants to stay where he is living at this time Care planning reviewed [facility] SLUMS= 20 10/06 SLUMS= 28 05/12/24 patient would like to decrease Namenda 10 mg daily- kidney disease HX Aricept stopped at hospital and caused diarrhea discuss medications and taper down dose r/t number rx he is on and patient reported improved memory on rx Pharmacy: [facility] 4. Insomnia disorder related to another mental disorder - patient reported not taking Melatonin 3 mg at bedtime related to sleep improved 5. Chronic post-traumatic stress disorder - educated on ways to avoid triggers therapy - see [facility] 6. Elevated Blood pressure educated on healthy b/p 120/80 monitor b/p at home refer to PCP, Urgent care/ER heart healthy diet and excise limit salt intake limit soda intake and caffiene increase water obtain labs PCP Refer to PCP - RLS Plan Of Treatment Next Appt Details Provider Name:Kenyatta Mota , 08/04/2024 01:00:00 PM, [address], [place], [address], Insurance Providers Payer Name Payer Address Payer Phone Subscriber Number Group Number Insured Name Patient Relationship to Insured Coverage Start Date Coverage End Date [employer] Medicare Replacement/ Advantage - Ppo [address] [address] [place] [address] [id number] JUNIOR COREY Self - patient is the insured [place] [address] [address] [place] [address] [id number] COREY PACHECO Self - patient is the insured Medical (General) History Medical History History ICD Code Problems: Chronic post-traumatic stress disorder Generalized anxiety disorder History of SARS-CoV-2 Insomnia disorder related to another men amanda disorder Memory impairment Mild recurrent major depression [id number]|2024-07-27 09:41:00|2024-07-27 09:40:00|XMS_ITS|BKG DAEMON|External Medical Summaries|[id number]|" Progress note - 04/26/2024 Created on: July 27, 2024 COREY PACHECO : 1945 Sex: Male Author Organization [facility] [employer] Address [address] [place] [address] Care Team Providers Care Pressurised Container Filler Name Role Phone Marcus LYNCH, Maik Primary Care Provider Marilyn shayanpietro Nakul Kenyatta Unavailable [phone] REASON FOR VISIT positive for covid Social History Sex Assigned At : Social History Observation Description Sex Assigned At Male Encounters Encounter Location Date Provider Diagnosis [facility] [address] [facility] [address] [place] [address] 04/26/2024 Kenyatta Mota Plan Of Treatment Next Appt Details Provider Name:Kenyatta Nakul , 08/04/2024 01:00:00 PM, [address], [facility] [address], [place], [address], Progress Notes * COREY PACHECODOB:1945 ( 79 yo M)Acc No.[id number]:04/26/2024 Patient: COREY NORTH Provider: ECTOR TILLMAN :1945 A ge:79 Y S ex:Male Date:04/26/2024 Address:[address] [place], [place] [id number] Pcp:Maik Velazquez MD Subjective: * Chief Complaints: * 1 . Positive for covid. * Medical History: Objective: * Vitals: Assessment: Plan: * Treatment: * Billing Information: * Visit Code: * Procedure Codes: * Electronic signature of ECTOR Roe on 07/27/2024 at 09:40 AM CDT Sign off status: Pending * Provider: ECTOR TILLMAN Date: 04/26/2024 Generated for Trevon combs/Essence/eTdenisitting on: 0 07/27/2024 09:40 AM CDT "
--- OUTSIDE RECORDS SUMMARY | 2024-07-27 09:41 | XMS_ITS ---
Author Organization [facility] Address [address] [facility] [address] [facility] [address] [place] [address] Care Team Providers Care Stiff Leg Derrick Operator Name Role Phone Steven Montoya Unavailable [phone] MEDICATIONS Medication SIG (Take, Route, Fr equency, Duration) Notes Start Date End Date Status Calcitriol 0.25 MCG 1 capsule Orally Onc e a day for 90 day(s) 04/20/2024 01/15/2025 Active SOCIAL HISTORY Sex Assigned At : Social History Observation Description Sex Assigned At Male Encounters Encounter Location Date Provider Diagnosis [facility] [address] [facility] [address] [place] [address] 04/20/2024 Steven Montoya PLAN OF TREATMENT Medication Medication Name Sig Start Date Stop Date Notes Calcitriol 0.25 MCG 1 capsule Orally Onc e a day for 90 day(s) 04/20/2024 01/15/2025 Next Appt Details Provider Name:Steven Montoya , 08/24/2024 03:00:00 PM, [address] [facility] [address], [place], [address], Progress Notes * COREY PACHECODOB:1945 ( 79 yo M)Acc No.[id number]:04/20/2024 Patient: COREY PACHECO :1945 Age:79 Y Sex:Male Address:[address] [place] [address], [place] [address] * Refills Start Calcitriol Capsule, 0.25 MCG, Orally, 90 Capsule, 1 capsule, Once a day, 90 day(s), Refills=2 * * Date:
[2024-07-27 10:19] LABS: Basophils Absolute Auto 0.1 K/mm3 (0.0-0.1); Basophils Percent Auto 0.7 % (0.2-1.2); Eosinophils Absolute Auto 0.1 K/mm3 (0-0.3); Eosinophils Percent Auto 0.8 % (0-4.4); Hematocrit 40.3 % (42.0-52.0); Hemoglobin 12.5 g/dL (14.0-18.0); Immature Granulocyte Absolute 0.04 K/mm3 (0.00-0.031); Immature Granulocyte Percent A 0.5 % (0-0.5); Lymphocytes Percent Auto 32.8 % (18.3-44.2); Mean Corpuscular Hemoglobin 28.3 pg (26-34); Mean Corpuscular Volume 91.2 fl (80-100); Monocytes Absolute Auto 0.6 K/mm3 (0.1-0.6); Monocytes Percent Auto 8.5 % (2.6-8.5); Neutrophils Absolute Auto 4.2 K/mm3 (1.3-6.7); Neutrophils Percent Auto 56.7 % (45.5-73.1); Platelet Count Result 227 k/mm3 (150-375); Red Blood Count 4.42 M/mm3 (4.6-6.20); White Blood Count 7.3 K/mm3 (4.5-10.0)
[2024-07-27 10:52] LABS: Iron 67 ug/dL (49-181)
[2024-07-27 11:05] LABS: Percent Iron Saturation 22 % (20-50)
[2024-07-27 11:11] LABS: Alanine Aminotransferase 25 U/L (6-50); Albumin Level 4.3 g/dL (3.5-5.1); Alkaline Phosphatase 106 U/L (38-126); Anion Gap 11 mmol/L (4-12); Aspartate Amino Transferase 31 U/L (17-59); Bilirubin,Total 0.5 mg/dL (0.2-1.3); Blood Urea Nitrogen 32 mg/dL (9-20); Carbon Dioxide 23 mmol/L (22-30); Chloride 103 mmol/L (98-107); Cholesterol 269 mg/dL (0-200); Estimated Glomerular Filt Rate 52; Glucose 111 mg/dL (65-110); HDL Direct 47 mg/dL; Potassium 4.2 mmol/L (3.4-5.0); Sodium 137 mmol/L (137-145); Triglycerides 149 mg/dL (<150)
[2024-07-27 11:22] LABS: LDL Cholesterol Direct 157 mg/dL
[2024-07-27 11:25] LABS: Hemoglobin A1C 5.5 % (<5.7)
[2024-07-27 11:43] LABS: Add Urine Microscopic? NO; Appearance Urine Clear (Clear); Bilirubin Urine Negative (Negative); Blood Urine Negative (Negative); Color Urine Yellow (Yellow); Glucose Urine UA 3+ mg/dL (Negative); Ketones Urine Negative (Negative); Leukocyte Esterase Ur Negative LEU/UL (Negative); Nitrate Urine Negative (Negative); Protein Urine Negative (Negative); Specific Grav Ur 1.011 (1.001-1.035); Urobilinogen Urine 0.2 mg/dL (<2.0); pH Urine 5.5 (5.0-9.0)
[2024-07-27 11:57] LABS: Creatinine Urine 50.7 mg/dL
[2024-07-27 12:08] LABS: MALB Creatinine Ratio < 11.8 mg/g (0-30); Microalbumin Urine Random < 6.0 mg/L (0-16.7)
[2024-07-27 12:17] LABS: Folic Acid 9.6 ng/mL (2.76->20)
[2024-08-01 12:23] LABS: Testosterone Free 2.5 pg/mL (30.0-135.0); Testosterone Total 29 ng/dL (250-1100)
== END 2024-07-27 09:30 | disposition home or self-care (01) ==
LOC: ANHLAB 09:32
PROVIDERS: PCP Family Medicine; Visit Provider Family Medicine
DX: D64.9 Anemia, unspecified (principal); E29.1 Testicular hypofunction; E11.9 Type 2 diabetes mellitus without complications; D51.9 Vitamin B12 deficiency anemia, unspecified
CPT/HCPCS: 36415; 80048; 80061; 80076; 81003; 82043; 82607; 82728; 82746; 83036; 83540; 83550; 84402; 84403; 84443; 85025

== ENCOUNTER 2025-02-28 11:10 | Outpatient (CLI) | payer MEDICARE, MEDICAID, SELFPAY ==
--- OUTSIDE RECORDS SUMMARY | 2023-09-16 08:45 | XMS_ITS ---
Author Organization [facility] Address [address] [place] [address] Care Team Providers Care Title Clerk Automobile Name Role Phone JanBrodySteven Unavailable [phone] Medications Medication SIG (Take, Route, Frequency, Duration) Notes Start Date End Date Status Calcitriol 0.25 MCG TAKE 1 CAPSULE BY MO UTH EVERY OTHER DAY; Duration: 30 Active Magnesium Oxide -Mg Supplement 400 (240 Mg) MG TAKE 1 TABLET BY MOUTH TWICE A DAY; Duration: 30 Active Vitamin D (Ergocalciferol) 1.25 MG (34393 UT) TAKE 1 CAPSULE BY MOUTH EVERY OTHER WEEK; Duration: 28 Active amLODIPine Besylate 2.5 MG 1 tablet Oral ly Once a day; Duration: 90 days 04/03/2023 Active Social History Sex Assigned At : Social History Observation Description Sex Assigned At Male Encounters Encounter Location Date Provider Diagnosis [place] [facility] [address] [facility] [address] [place] [address] 09/16/2023 Steven Montoya Chronic kidney disea se, stage 3a N18.31 ; Essential hypertension I10 ; Heart failure, unspecified I50.9 ; Other proteinuria R80.8 ; Renal osteodystrophy N25.0 ; Proteinuria, unspecified R80.9 ; Unspecified abdominal pain R10.9 and Type 2 diabetes mellitus with hyperglycemia E11.65 Assessments Encounter Date Diagnosis (ICD Code) Assessment Notes Treatment Notes Treatment Clinical Notes Section Notes 09/16/2023 Chronic kidney disease, stage 3a (ICD-10 - N18.31) 09/16/2023 Essential hypertension (ICD-10 - I10) 09/16/2023 Heart failure, unspecified (ICD-10 - I50.9) 09/16/2023 Other proteinuria (ICD-10 - R80.8) 09/16/2023 Renal osteodystrophy (ICD-10 - N25.0) 09/16/2023 Proteinuria, unspecified (ICD-10 - R80.9) 09/16/2023 Unspecified abdominal pain (ICD-10 - R10.9) 09/16/2023 Type 2 diabetes mellitus with hyperglycemia (ICD-10 - E11.65) Plan Of Treatment No Information Progress Notes * COREY PACHECODOB:1945 ( 79 yo M)Acc No.[id number]:09/16/2023 Progress Notes Patient: COREY NORTH Provider: Jerrell BERMUDEZ MD, F.A.C.P, F.A.S.N. :1945 A ge:78 Y S ex:Male Date:09/16/2023 Address:[address] [place] [address] Subjective: * Chief Complaints: * * Medical History: * Medications: T aking amLODIPine Besylate 2.5 MG Tablet 1 tablet Orally Once a day , Taking Vitamin D (Ergocalciferol) 1.25 MG (36299 UT) Capsule TAKE 1 CAPSULE BY MOUTH EVERY OTHER WEEK , Taking Magnesium Oxide -Mg Supplement 400 (240 Mg) MG Tablet TAKE 1 TABLET BY MOUTH TWICE A DAY , Taking Calcitriol 0.25 MCG Capsule TAKE 1 CAPSULE BY MOUTH EVERY OTHER DAY Objective: * Vitals: Assessment: * Assessment: 1. C hronic kidney disease, stage 3a - N18.31 (Primary) 2 . E ssential hypertension - I10 3 . H eart failure, unspecified - I50.9 4 . O ther proteinuria - R80.8 5 . R enal osteodystrophy - N25.0 6 . Proteinuria, unspecified - R80.9 7 . U nspecified abdominal pain - R10.9? 8. T ype 2 diabetes mellitus with hyperglycemia - E11.65 Plan: * Treatment: * Billing Information: * Visit Code: 33123 Office Visit, Est Pt., Level 4. * Procedure Codes: * Electronic signature of Sampson Montoya MD on 02/28/2025 at 01:34 PM STUDIO CONTROL OPERATOR Sign off status: Pending * Provider: Jerrell BERMUDEZ MD, F.A.C.P, F.A.S.N. Date: 0 09/16/2023 Generated for Printing/Faxing/eTransmitting on: 1 05/01/2024 01:34 PM STUDIO CONTROL OPERATOR
--- OUTSIDE RECORDS SUMMARY | 2023-11-18 08:00 | XMS_ITS ---
Author Organization [facility] Address [address] [place] [address] Care Team Providers Care Bullion Weigher Name Role Phone Mikey Montoyajit Unavailable [phone] Social History Sex Assigned At : Social History Observation Description Sex Assigned At Male Encounters Encounter Location Date Provider Diagnosis [place] [facility] 2043 [facility] [address] [place] [address] 11/18/2023 Steven Montoya Plan Of Treatment No Information Progress Notes * COREY PACHECODOB:1945 ( 79 yo M)Acc No.[id number]:11/18/2023 Progress Notes Patient: COREY NORTH Provider: Jerrell BERMUDEZ MD, William.Tevin.C.P, F.A.S.N. :1945 A ge:78 Y S ex:Male Date:11/18/2023 Address:[address] [place] [address] Subjective: * Chief Complaints: * * Medical History: Objective: * Vitals: Assessment: Plan: * Treatment: * Billing Information: * Visit Code: * Procedure Codes: * Electronic signature of Sampson Montoya MD on 02/28/2025 at 01:35 PM SENIOR CATEGORY MANAGER Sign off status: Pending * Provider: Jerrell BERMUDEZ MD, F.Tevin.C.P, F.A.S.N. Date: 0 11/18/2023 Generated for Printing/Faxing/eTransmitting on: 1 05/01/2024 01:35 PM SENIOR CATEGORY MANAGER
--- OUTSIDE RECORDS SUMMARY | 2023-12-11 06:00 | XMS_ITS ---
Author Organization [facility] Address [address] [place] [address] Care Team Providers Care Marketing Account Manager Name Role Phone Jan Steven Unavailable [phone] Medications Medication SIG (Take, Route, Frequency, Duration) Notes Start Date End Date Status amLODIPine Besylate 2.5 MG 1 tablet Oral ly Once a day; Duration: 90 days 04/03/2023 Active Magnesium Oxide -Mg Supplement 400 (240 Mg) MG TAKE 1 TABLET BY MOUTH TWICE A DAY; Duration: 30 Active Sodium Chloride 1 GM 1 tablet Orally Twi ce a day; Duration: 90 days 09/16/2023 06/12/2024 Active Ergocalciferol 1.25 MG (55186 UT) 1 capsule Orally Once a week; Duration: 90 day(s) 09/16/2023 06/12/2024 Active Calcitriol 0.25 MCG TAKE 1 CAPSULE BY MO UTH EVERY OTHER DAY; Duration: 30 Active Vitamin D (Ergocalciferol) 1.25 MG (72999 UT) TAKE 1 CAPSULE BY MOUTH EVERY OTHER WEEK; Duration: 28 Active Social History Sex Assigned At : Social History Observation Description Sex Assigned At Male Encounters Encounter Location Date Provider Diagnosis [place] [facility] 2043 [facility] 15 [place] [address] 12/11/2023 Steven Montoya Chronic kidney disea se, stage 3a N18.31 ; Essential hypertension I10 ; Heart failure, unspecified I50.9 ; Other proteinuria R80.8 ; Renal osteodystrophy N25.0 ; Proteinuria, unspecified R80.9 ; Unspecified abdominal pain R10.9 and Type 2 diabetes mellitus with hyperglycemia E11.65 Assessments Encounter Date Diagnosis (ICD Code) Assessment Notes Treatment Notes Treatment Clinical Notes Section Notes 12/11/2023 Chronic kidney disease, stage 3a (ICD-10 - N18.31) 12/11/2023 Essential hypertension (ICD-10 - I10) 12/11/2023 Heart failure, unspecified (ICD-10 - I50.9) 12/11/2023 Other proteinuria (ICD-10 - R80.8) 12/11/2023 Renal osteodystrophy (ICD-10 - N25.0) 12/11/2023 Proteinuria, unspecified (ICD-10 - R80.9) 12/11/2023 Unspecified abdominal pain (ICD-10 - R10.9) 12/11/2023 Type 2 diabetes mellitus with hyperglycemia (ICD-10 - E11.65) Plan Of Treatment No Information Progress Notes * COREY PACHECODOB:1945 ( 79 yo M)Acc No.[id number]:12/11/2023 Progress Notes Patient: COREY NORTH Provider: Jerrell BERMUDEZ MD, F.A.C.P, F.A.S.N. :1945 A ge:78 Y S ex:Male Date:12/11/2023 Address:[address] [place] [address] Subjective: * Chief Complaints: * * Medical History: * Medications: T aking amLODIPine Besylate 2.5 MG Tablet 1 tablet Orally Once a day , Taking Vitamin D (Ergocalciferol) 1.25 MG (23108 UT) Capsule TAKE 1 CAPSULE BY MOUTH EVERY OTHER WEEK , Taking Sodium Chloride 1 GM Tablet 1 tablet Orally Twice a day , stop date 06/12/2024, Taking Ergocalciferol 1.25 MG (76066 UT) Capsule 1 capsule Orally Once a week , stop date 06/12/2024, Taking Calcitriol 0.25 MCG Capsule TAKE 1 CAPSULE BY MOUTH EVERY OTHER DAY , Taking Magnesium Oxide -Mg Supplement 400 (240 Mg) MG Tablet TAKE 1 TABLET BY MOUTH TWICE A DAY Objective: * Vitals: Assessment: * Assessment: 1. C hronic kidney disease, stage 3a - N18.31 2 . E ssential hypertension - I10 3 . H eart failure, unspecified - I50.9 4 . O ther proteinuria - R80.8 5 . R enal osteodystrophy - N25.0 6 . P roteinuria, unspecified - R80.9 7 . U nspecified abdominal pain - R10.9 ?8. T ype 2 diabetes mellitus with hyperglycemia - E11.65 Plan: * Treatment: * Billing Information: * Visit Code: * Procedure Codes: * Electronic signature of Sampson Montoya MD on 02/28/2025 at 01:35 PM BENZENE STILL UTILITY OPERATOR Sign off status: Pending * Provider: Jerrell BERMUDEZ MD, F.A.C.P, F.A.S.N. Date: 0 12/11/2023 Generated for Printing/Faxing/eTransmitting on: 1 05/01/2024 01:35 PM BENZENE STILL UTILITY OPERATOR
--- OUTSIDE RECORDS SUMMARY | 2024-02-26 06:30 | XMS_ITS ---
Author Organization [facility] Address [address] [place] [address] Care Team Providers Care Lace Winder Name Role Phone Steven Montoya Unavailable [phone] Social History Sex Assigned At : Social History Observation Description Sex Assigned At Male Encounters Encounter Location Date Provider Diagnosis [place] [facility] 2043 [facility] 15 [place] [address] 02/26/2024 Steven Montoya Plan Of Treatment No Information Progress Notes * COREY PACHECODOB:1945 ( 79 yo M)Acc No.[id number]:02/26/2024 Progress Notes Patient: COREY NORTH Provider: Jerrell BERMUDEZ MD, William.Tevin.C.P, F.A.S.N. :1945 A ge:78 Y S ex:Male Date:02/26/2024 Address:[address] [place] [address] Subjective: * Chief Complaints: * * Medical History: Objective: * Vitals: Assessment: Plan: * Treatment: * Billing Information: * Visit Code: * Procedure Codes: * Electronic signature of Sampson Montoya MD on 02/28/2025 at 01:33 PM LINTING MACHINE OPERATOR Sign off status: Pending * Provider: Jerrell BERMUDEZ MD, F.Tevni.C.P, F.A.S.N. Date: 04/28/2023 Generated for Printing/Faxing/eTransmitting on: 05/01/2024 01:33 PM LINTING MACHINE OPERATOR
--- OUTSIDE RECORDS SUMMARY | 2024-04-20 08:45 | XMS_ITS ---
Author Organization [facility] Address [address] [place] [address] Care Team Providers Care Miter Cutter Name Role Phone JanMikeySteven Unavailable [phone] Social History Sex Assigned At : Social History Observation Description Sex Assigned At Male Problems Problem Type SNOMED Code ICD Code Onset Dates Problem Status W/U Status Risk Notes Problem Systolic heart failure (481472560) Unspecified systolic (congestive) heart failure (I50.20) Active confirmed Problem Gastro-esophagea l reflux disease without esophagitis (938395676) Gastro-esophage al reflux disease without esophagitis (K21.9) Active confirmed Encounters Encounter Location Date Provider Diagnosis [place] [facility] 2043 [facility] 15 [place] [address] 04/20/2024 Steven Montoya Chronic kidney disease, stage 3a N18.31 ; Essential hypertension I10 ; Hypo-osmolality and hyponatremia E87.1 ; Unspecified systolic (congestive) heart failure I50.20 ; Glycosuria R81 ; Hyperkalemia E87.5 and Gastro-esophageal reflux disease without esophagitis K21.9 Assessments Encounter Date Diagnosis (ICD Code) Assessment Notes Treatment Notes Treatment Clinical Notes Section Notes 04/20/2024 Chronic kidney disease, stage 3a (ICD-10 - N18.31) 04/20/2024 Essential hypertension (ICD-10 - I10) 04/20/2024 Hypo-osmolality and hyponatremia (ICD-10 - E87.1) 04/20/2024 Unspecified systolic (congestive) heart failure (ICD-10 - I50.20) 04/20/2024 Glycosuria (ICD-10 - R81) 04/20/2024 Hyperkalemia (ICD-10 - E87.5) 04/20/2024 Gastro-esophageal reflux disease without esophagitis (ICD-10 - K21.9) Plan Of Treatment No Information Progress Notes * COREY PACHECODOB:1945 ( 79 yo M)Acc No.[id number]:04/20/2024 Progress Notes Patient: COREY NORTH Provider: Jerrell BERMUDEZ MD, ErikaP, F.A.S.N. :1945 A ge:79 Y S ex:Male Date:04/20/2024 Address:[address] [place] [address] Subjective: * Chief Complaints: * * Medical History: Objective: * Vitals: Assessment: * Assessment: 1. C hronic kidney disease, stage 3a - N18.31 (Primary) 2 . E ssential hypertension - I10 3 . H ypo-osmolality and hyponatremia - E87.1 4 .?Unspecified systolic (congestive) heart failure - I50.20 5 . G lycosuria - R81 6 . H yperkalemia - E87.5 7 . G lawanda-esophageal reflux disease without esophagitis - K21.9 Plan: * Treatment: * Billing Information: * Visit Code: 76477 Office Visit, Est Pt., Level 4. * Procedure Codes: * Electronic signature of Sampson Montoya MD on 02/28/2025 at 01:34 PM CANDY ROLLER Sign off status: Pending * Provider: Jerrell BERMUDEZ MD, William.Tevin.Tyesha.P, F.A.S.N. Date: 0 04/20/2024 Generated for Printing/Faxing/eTransmitting on: 05/01/2024 01:34 PM CANDY ROLLER
--- OUTSIDE RECORDS SUMMARY | 2024-04-26 07:45 | XMS_ITS ---
Author Organization [facility] [employer] Address [facility] [address] [address] Care Team Providers Care Public Service Administrator Name Role Phone Maik Velazquez MD Primary Care Provider Kenyatta Ramos Unavailable [phone] REASON FOR VISIT positive for covid Social History Sex Assigned At : Social History Observation Description Sex Assigned At Male Encounters Encounter Location Date Provider Diagnosis [facility] [employer] [place] [address] [facility] [address] [address] 04/26/2024 Kenyatta Mota Plan Of Treatment Next Appt Details Provider Name:Kenyatta Mota , 03/29/2025 01:00:00 PM, [address], [facility], [place], [address], Progress Notes * COREY PACHECODOB:1945 ( 79 yo M)Acc No.[id number]:04/26/2024 Patient: Temitope DARIELACOREY Provider: ECTOR TILLMAN :1945 A ge:79 Y S ex:Male Date:04/26/2024 Address:[address] [place], [place]-[address] Pcp:Maik Velazquez MD Subjective: * Chief Complaints: * P ositive for covid Billing Information: * Procedure Codes: * Electronic signature of ECTOR Roe on 02/28/2025 at 01:34 PM VAT HOUSE LABORER Sign off status: Pending * Provider: ECTOR TILLMAN Date: 0 04/26/2024 Generated for Trevon combs/Ariana on: 1 05/01/2024 01:34 PM VAT HOUSE LABORER
--- OUTSIDE RECORDS SUMMARY | 2024-06-15 14:30 | XMS_ITS ---
Author Organization [facility] Address [address] [place] [address] Care Team Providers Care Solution Professional Name Role Phone Mikey Montoyajit Unavailable [phone] Social History Sex Assigned At : Social History Observation Description Sex Assigned At Male Encounters Encounter Location Date Provider Diagnosis [place] [facility] 2043 [facility] 15 [place] [address] 06/15/2024 Steven Montoya Plan Of Treatment No Information Progress Notes * COREY PACHECODOB:1945 ( 79 yo M)Acc No.[id number]:06/15/2024 Progress Notes Patient: COREY NORTH Provider: Jerrell BERMUDEZ MD, William.Tevin.C.P, F.A.S.N. :1945 A ge:79 Y S ex:Male Date:06/15/2024 Address:[address] [place] [address] Subjective: * Chief Complaints: * * Medical History: Objective: * Vitals: Assessment: Plan: * Treatment: * Billing Information: * Visit Code: * Procedure Codes: * Electronic signature of Sampson Montoya MD on 02/28/2025 at 01:33 PM PROBATION AND PATROL AGENT Sign off status: Pending * Provider: Jerrell BERMUDEZ MD, F.Tevin.C.P, F.A.S.N. Date: 0 06/15/2024 Generated for Printing/Faxing/eTransmitting on: 1 05/01/2024 01:33 PM PROBATION AND PATROL AGENT
--- OUTSIDE RECORDS SUMMARY | 2024-06-22 09:00 | XMS_ITS ---
Author Organization [facility] Address [address] [place] [address] Care Team Providers Care Engine Lathe Operator Name Role Phone JanSteven Unavailable [phone] Social History Sex Assigned At : Social History Observation Description Sex Assigned At Male Problems Problem Type SNOMED Code ICD Code Onset Dates Problem Status W/U Status Risk Notes Problem Hyperkalemia (26958563) Hyperkalemia (E87.5) Active confirmed Problem Hypo-osmolality and or hyponatremia (049376729) Hypo-osmolality and hyponatremia (E87.1) Active confirmed Problem Post-traumatic stress disorder (83901051) Post-traumatic stress disorder, unspecified (F43.10) Active confirmed Encounters Encounter Location Date Provider Diagnosis [place] [facility] 2043 [facility] 15 [place] [address] 06/22/2024 Steven Montoya Chronic kidney disea se, stage 3a N18.31 ; Essential hypertension I10 ; Unspecified systolic (congestive) heart failure I50.20 ; Renal osteodystrophy N25.0 ; Proteinuria, unspecified R80.9 ; Unspecified abdominal pain R10.9 ; Type 2 diabetes mellitus with hyperglycemia E11.65 ; Gastro-esophageal reflux disease without esophagitis K21.9 ; Hyperkalemia E87.5 ; Hypo-osmolality and hyponatremia E87.1 and Post-traumatic stress disorder, unspecified F43.10 Assessments Encounter Date Diagnosis (ICD Code) Assessment Notes Treatment Notes Treatment Clinical Notes Section Notes 06/22/2024 Chronic kidney disease, stage 3a (ICD-10 - N18.31) 06/22/2024 Essential hypertension (ICD-10 - I10) 06/22/2024 Unspecified systolic (congestive) heart failure (ICD-10 - I50.20) 06/22/2024 Renal osteodystrophy (ICD-10 - N25.0) 06/22/2024 Proteinuria, unspecified (ICD-10 - R80.9) 06/22/2024 Unspecified abdominal pain (ICD-10 - R10.9) 06/22/2024 Type 2 diabetes mellitus with hyperglycemia (ICD-10 - E11.65) 06/22/2024 Gastro-esophageal reflux disease without esophagitis (ICD-10 - K21.9) 06/22/2024 Hyperkalemia (ICD-10 - E87.5) 06/22/2024 Hypo-osmolality and hyponatremia (ICD-10 - E87.1) 06/22/2024 Post-traumatic stress disorder, unspecified (ICD-10 - F43.10) Plan Of Treatment No Information Progress Notes * COREY PACHECODOB:1945 ( 79 yo M)Acc No.[id number]:06/22/2024 Progress Notes Patient: COREY NORTH Provider: Jerrell BERMUDEZ MD, F.A.C.P, F.A.S.N. :1945 A ge:79 Y S ex:Male Date:06/22/2024 Address:[address] [place] [address] Subjective: * Chief Complaints: * * Medical History: Objective: * Vitals: Assessment: * Assessment: 1. C hronic kidney disease, stage 3a - N18.31 (Primary) 2 . E ssential hypertension - I10 3 . U nspecified systolic (congestive) heart failure - I50.20? 4. R enal osteodystrophy - N25.0 5 . P roteinuria, unspecified - R80.9 6 . U nspecified abdominal pain - R10.9 7 . T ype 2 diabetes mellitus with hyperglycemia - E11.65 8 . G lawanda-esophageal reflux disease without esophagitis - K21.9 9 . H yperkalemia - E87.5 1 0. Hypo-osmolality and hyponatremia - E87.1 1 1. P ost-traumatic stress disorder, unspecified - F43.10 Plan: * Treatment: * Billing Information: * Visit Code: 52377 Office Visit, Est Pt., Level 4. * Procedure Codes: * Electronic signature of Sampson Montoya MD on 02/28/2025 at 01:33 PM CHAIN HOOKER Sign off status: Pending * Provider: Jerrell BERMUDEZ MD, F.A.C.P, F.A.S.N. Date: 0 06/22/2024 Generated for Printing/Faxing/eTransmitting on: 1 05/01/2024 01:33 PM CHAIN HOOKER
--- OUTSIDE RECORDS SUMMARY | 2024-08-24 12:45 | XMS_ITS ---
Author Organization [facility] Address [address] [place] [address] Care Team Providers Care Filer Metal Patterns Name Role Phone Steven Montoya Unavailable [phone] Social History Sex Assigned At : Social History Observation Description Sex Assigned At Male Encounters Encounter Location Date Provider Diagnosis [place] [facility] [address] [facility] [address] [place] [address] 08/24/2024 Steven Montoya Plan Of Treatment No Information Progress Notes * COREY PACHECODOB:1945 ( 79 yo M)Acc No.[id number]:08/24/2024 Progress Notes Patient: COREY NORTH Provider: Jerrell BERMUDEZ MD, William.Tevin.C.P, F.A.S.N. :1945 A ge:79 Y S ex:Male Date:08/24/2024 Address:[address] [place] [address] Subjective: * Chief Complaints: * * Medical History: Objective: * Vitals: Assessment: Plan: * Treatment: * Billing Information: * Visit Code: * Procedure Codes: * Electronic signature of Sampson Montoya MD on 02/28/2025 at 01:35 PM WHEAT CLEANER Sign off status: Pending * Provider: Jerrell BERMUDEZ MD, F.Tevin.C.P, F.A.S.N. Date: 0 08/24/2024 Generated for Printing/Faxing/eTransmitting on: 1 05/01/2024 01:35 PM WHEAT CLEANER
--- OUTSIDE RECORDS SUMMARY | 2024-08-31 14:00 | XMS_ITS ---
Author Organization [facility] Address [address] [place] [address] Care Team Providers Care Sheet Hanger Name Role Phone Steven Montoya Unavailable [phone] Social History Sex Assigned At : Social History Observation Description Sex Assigned At Male Encounters Encounter Location Date Provider Diagnosis [place] [facility] [address] [facility] [address] [place] [address] 08/31/2024 Steven Montoya Plan Of Treatment No Information Progress Notes * COREY PACHECODOB:1945 ( 79 yo M)Acc No.[id number]:08/31/2024 Patient: COREY NORTH Provider: Jerrell BERMUDEZ MD, William.Tevin.C.P, F.A.S.N. :1945 A ge:79 Y S ex:Male Date:08/31/2024 Address:[address] [place] [address] Subjective: * Chief Complaints: Objective: Assessment: Plan: * Billing Information: * Visit Code: * Procedure Codes: * Electronic signature of Sampson Montoya MD on 02/28/2025 at 01:34 PM SKIP LOADER Sign off status: Pending * Provider: Jerrell BERMUDEZ MD, William.Tevin.C.P, F.A.S.N. Date: 0 08/31/2024 Generated for Printing/Faxing/eTransmitting on: 1 05/01/2024 01:34 PM SKIP LOADER
[2025-02-28 12:43] LABS: Hematocrit 45.8 % (42.0-52.0); Hemoglobin 14.4 g/dL (14.0-18.0); Mean Corpuscular HGB Conc 31.4 g/dl (32-36); Mean Corpuscular Hemoglobin 28.4 pg (26-34); Mean Corpuscular Volume 90.3 fl (80-100); Platelet Count Result 253 k/mm3 (150-375); Red Blood Count 5.07 M/mm3 (4.6-6.20); White Blood Count 7.6 K/mm3 (4.5-10.0)
[2025-02-28 13:05] LABS: Cholesterol 182 mg/dL (0-200); HDL Direct 45 mg/dL; Triglycerides 89 mg/dL (<150)
[2025-02-28 13:22] LABS: Free T4 Free Thyroxine 1.25 ng/dL (0.78-2.19)
--- OUTSIDE RECORDS SUMMARY | 2025-02-28 13:33 | XMS_ITS | Clinical Summary ---
Author Organization [facility] Care Team Providers Care Heel Burnisher Name Role Phone Unavailable Primary Care Provider Unavailabl e Social History Tobacco Use Types Packs/Day Years Used Date Smoking Tobacco: Never Assessed Sex and Gender Information Value Date Recorded Sex Assigned at Not on file Legal Sex Male 12:57 PM INTAKE MAN Gender Identity Not on file Sexual Orientation Not on file Plan of Treatment Health Maintenance Due Date Last Done Comments Hepatitis C Virus (HCV) Screening 1945 TdaP Immunization 1945 Pneumococcal Immunization (5 0+ years) (1 of 1 - PCV) 1995 Zoster Immunization (1 of 2) 1995 Respiratory Syncytial Virus (RSV) Immunization (Adult) (1 - 1-dose 75+ series) 2020 Influenza Immunization (#1) 11/14/202412/14, 01/26/2013 SARS-COV-2 Immunization ( - season) 2024 Hepatitis B Immunization Aged Out No longer eligible based on patient's age to complete this topic Human Papillomavirus (HPV) Immunization Aged Out No longer eligible b ased on patient's age to complete this topic Meningococcal Immunization (ACWY) Aged Out No longer eligible b ased on patient's age to complete this topic Rotavirus Immunization Aged Out No lo nger eligible based on patient's age to complete this topic
--- OUTSIDE RECORDS SUMMARY | 2025-02-28 13:34 | XMS_ITS | Clinical Summary ---
Author Organization [facility] Address [address] [place] [id number] Care Team Providers Care Planning Associate Name Role Phone Maik Velazquez MD Primary Care Provider [phone] Allergies Active Allergy Reactions Criticality Noted Date Comments Codeine Anaphylaxis,Swelling ,Warren h,Shortness of breath,Unknown High 11/06/2017 Throat swelling and trouble breathing Morphine Anaphylaxis,Other (S ee comments),Rash,Shortness of breath,Swelling High 03/03/2023 Tablets passed out Medications tamsulosin (FLOMAX) 0.4 mg extended release capsuleIndicatio ns:benign prostatic hyperplasia with lower urinary tract sx Take 1 capsule (0.4 mg total) by mouth daily before breakfast 8 Active atorvastatin (LIPITOR) 40 mg tabletIndication s:hyperlipidemia Take 1 tablet (40 mg total) by mouth daily before breakfast 3 Active Vitamin D2 1,250 mcg (50,000 unit) capsuleIndicatio ns:Vitamin D Deficiency Take 1 capsule (50,000 Units total) by mouth every 2 (two) weeks 2 Active losartan (COZAAR) 100 mg tabletIndication s:hypertension Take 0.5 tablets (50 mg total) by mouth daily before breakfast 3 Active memantine (NAMENDA) 10 mg tabletIndication s:Moderate to Severe Alzheimer's Type Dementia Take 1 tablet (10 mg total) by mouth 2 (two) times a day 3 Active Xtampza ER 36 mg capsule,sprinkle ,ER 12hr tmprrIndications :severe chronic pain with opioid tolerance Take 36 mg by mouth 2 (two) times a day 3 Active calcitRIOL (ROCALTROL) 0.25 mcg capsuleIndicatio ns:for kidneys Take 1 capsule (0.25 mcg total) by mouth every other day 3 Active Jardiance 25 mg tabletIndication s:type 2 diabetes mellitus Take 1 tablet (25 mg total) by mouth daily before breakfast 3 Active sertraline (ZOLOFT) 100 mg tabletIndication s:Anxiety with Depression Take 1 tablet (100 mg total) by mouth daily before breakfast Active ALPRAZolam (XANAX) 0.25 mg tablet Take 1 tablet (0.25 mg total) by mouth 3 (three) times a day as needed for anxiety 3 Active omeprazole (PriLOSEC) 40 mg capsuleIndicatio ns:Stress Ulcer Prophylaxis Take 1 capsule (40 mg total) by mouth daily before breakfast 3 Active EnevoTouch Ultra Test strip USE DIRECTED TO CHECK BLOOD SUGAR TWICE DAILY 3 Active EnevoTouch Delica Plus Lancet 33 gauge misc 2 (two) times a day 3 Active Myrbetriq 25 mg tablet extended release 24 hrIndications:In creased Urinary Frequency Take 1 tablet (25 mg total) by mouth daily before breakfast 3 Active Ozempic 0.25 mg or 0.5 mg (2 mg/3 mL) pen injector injectionIndicat ions:type 2 diabetes mellitus Inject 0.5 mg under the skin once a week Mondays 3 Active cyanocobalamin (Vitamin B-12) 100 mcg tabletIndication s:Prevention of Vitamin B12 Deficiency Take 10 tablets (1,000 mcg total) by mouth daily before breakfast Active oxyCODONE (ROXICODONE) 5 mg immediate release tabletIndication s:Pain Take 1 tablet (5 mg total) by mouth every 4 (four) hours as needed for pain for up to 18 doses 18 tablet 4 Active diclofenac sodium (VOLTAREN) 1 % gelIndications:O steoarthritis Apply 2 g topically as needed Active albuterol HFA (Ventolin HFA) 90 mcg/actuation inhaler Inhale 2 puffs every 4 (four) hours as needed for shortness of breath or wheezing 9 Active sodium chloride 1 gram tablet every 12 hours 4 Active APPLE CIDER VINEGAR ORALIndications: supplement Take by mouth every morning Active oxyCODONE (ROXICODONE) 5 mg immediate release tabletIndication s:Pain Take 1 tablet (5 mg total) by mouth every 4 (four) hours as needed for pain 25 tablet 4 Active testosterone cypionate (DEPO-TESTOTERON E) 200 mg/mL injection 4 5 Active prednisoLONE acetate (PRED FORTE) 1 % ophthalmic suspension 5 Active ofloxacin (OCUFLOX) 0.3 % ophthalmic solution 5 Active ketorolac (ACULAR) 0.5 % ophthalmic solution 5 Active cholecalciferol 25 mcg (1,000 unit) tablet Take by mouth daily Active rosuvastatin (CRESTOR) 40 mg tablet 5 Active fluticasone propionate (FLONASE) 50 mcg/actuation nasal spray 5 Active coenzyme [id number] E 100-5 mg-unit capsule Take 100 mg by mouth early childhood before breakfast Active DULoxetine DR (CYMBALTA) 30 mg capsule Active Active Problems Problem Noted Date Diagnosed Date Acute non-recurrent maxillary sinusitis 01/14/20 25 Arthritis of left foot 01/13/2025 Ataxia 01/13/2025 Belching 01/13/2025 Benign paroxysmal positional vertigo due to bilateral vestibular disorder 01/13/2025 Black stools 01/13/2025 Candidiasis 01/13/2025 Chronic anxiety 01/13/2025 Complaint of melena 01/13/2025 Diarrhea 01/13/2025 Dysphagia 01/13/2025 Gas bloat syndrome 01/13/2025 Hypogonadism male 01/13/2025 Memory loss or impairment 01/13/2025 Nasal congestion 01/13/2025 Obesity (BMI 30-39.9) 01/13/2025 Otalgia of both ears 01/13/2025 Pressure ulcer of right buttock, stage 2 025 Seasonal allergic rhinitis 01/13/2025 Skin ulcer 01/13/2025 Subclinical hypothyroidism 01/13/2025 TMJ (temporomandibular joint disorder) Anemia 01/13/2025 Vitamin B12 deficiency anemia 01/13/2025 Vitamin D insufficiency 01/13/2025 Arthralgia of left foot 01/13/2025 Chronic bilateral low back pain with bilateral s ciatica 01/13/2025 Chronic midline thoracic back pain 01/13/2025 Chronic neck pain 01/13/2025 Chronic pain in left foot 01/13/2025 Chronic obstructive pulmonary disease 08/05/2024 Overview (08/05/2024): Phreesia 01/29/2023 Diabetes mellitus 08/05/2024 Overview (08/05/2024): Phreesia 01/29/2023 Erectile dysfunction due to arterial insufficien cy 08/05/2024 Overview (08/05/2024): I discussed options for treatment of his erectile dysfunction including oral agents (PDE5 inhibitors), intraurethral suppository (MUSE), intracavernosal injections, vacuum constriction device, as well as penile prosthesis surgery. The risks, benefits, and alternatives of each modality were discussed with the patient. He was given literature to review. - patient has previously failed PDE5Is, ICI Hyperkalemia 08/05/2024 Kidney disease 08/05/2024 Overview (08/05/2024): Phreesia 01/29/2023 Post-traumatic stress disorder 08/05/2024 Gastro-esophageal reflux disease without esophag itis 05/27/2024 Stage 4 chronic kidney disease 05/27/2024 Left wrist pain 11/09/2023 Foreign body in skin of foot 09/10/2023 Pain of left heel 09/10/2023 Heart failure 05/19/2023 Proteinuria 05/19/2023 Renal osteodystrophy 05/19/2023 Stage 3a chronic kidney disease 05/19/2023 Type 2 diabetes mellitus with hyperglycemia 07/2023 Arthritis of left wrist 04/06/2023 Atherosclerosis of [place] ar [place]ies of extremities with intermittent claudication, unspecified extremity 01/20/2023 Hypoxia 01/14/2023 Bradycardia 01/14/2023 Spinal stenosis of cervical region 01/12/2023 Osteoarthritis of left wrist 11/11/2022 Pain in left wrist 11/11/2022 Type 2 diabetes mellitus wit h diabetic polyneuropathy, with long-term current use of insulin 10/14/2022 Obstructive sleep apnea (adult) (pediatric) 03/2022 Elevated TSH 10/08/2022 Urinary urgency 09/19/2022 Nocturia 09/19/2022 Increased frequency of urination 09/19/2022 Sleep disorder 09/18/2022 Asymmetrical sensorineural hearing loss 09/12/19 Dizziness 08/19/2022 Peripheral arterial occlusive disease 07/03/2022 Pain of right heel 07/03/2022 Hammer toe 01/28/2022 Dystrophia unguium 01/28/2022 Tremor 11/19/2021 Renal insufficiency, mild 09/27/2021 Foot pain 04/04/2020 Foot callus 04/04/2020 Ear problem 04/04/2020 Disorder of globe 04/04/2020 Diabetic peripheral neuropathy 04/04/2020 Anxiety 04/04/2020 COVID-19 03/11/2020 Shortness of breath 02/06/2020 Palpitations 02/06/2020 Back pain 12/14/2018 Erectile dysfunction 06/08/2018 Syncope 11/12/2017 Hyperlipidemia 10/14/2017 Chronic diastolic (congestive) heart failure 03/2017 Depression 11/26/2007 Essential (primary) hypertension 03/16/1959 Atherosclerotic heart diseas e of [place] coronary artery without angina pectoris 03/16/1959 Encounters Date Type Department Care Team Description 01/13/2025 10:01 AM CDT - 01/13/2025 11:59 PM CDT Hospital Encounter [facility] [address] [place] [id number] Pain in left arm Discharge Disposition: Discharge to home or self care 01/13/2025 10:01 AM CDT - 01/13/2025 11:59 PM CDT Hospital Encounter [facility] [address] [place] [phone] Pain in left hand Discharge Disposition: Discharge to home or self care 01/13/2025 10:00 AM CDT Office Visit [facility] Medicine Orthopaedic Surgery [address] [facility] [address] [place] [phone] Jose Vasquez MD History of arthroplasty of left wrist (Primary Dx); Pain in left hand; Pain in left arm 01/13/2025 9:59 AM CDT - 01/13/2025 11:59 PM CDT Hospital Encounter [facility] [id number] [place] [id number] History of arthroplasty of left wrist Discharge Disposition: Discharge to home or self care from Last 3 Months Surgical History Surgery Date Site/Laterality Comments CORONARY ARTERY BYPASS GRAFT unknown date: early BACK SURGERY 03/16/2013 - 03/15/2014 CARDIAC CATHETERIZATION 03/16/2018 - 03/15/2019 ELBOW FRACTURE SURGERY 03/16/1984 - 03/15/1985 WRIST SURGERY 05/06/2023 DARRACH PROCEDURE- Resection Distal Ulna Medical History Medical History Date Comments Hypertension Hyperlipidemia Atrial fibrillation (HCC) Coronary artery disease Depression GERD (gastroesophageal reflux disease) Anemia Dementia (HCC) Sleep apnea doesn't tolerate cpap mask Family History Medical History Relation Name Comments Alcohol abuse Brother Cancer Brother Diabetes Brother Heart attack Brother Heart disease Brother Stroke Brother Alcohol abuse Father Heart disease Father Cancer Mother Anesthesia problems Neg Hx Relation Name Status Comments Brother Father Mother Social History Tobacco Use Types Packs/Day Years Used Date Smoking Tobacco: Former Cigarettes Q uit: 1984 Smokeless Tobacco: Never Tobacco Cessation:Counseling Given: Not Answered Alcohol Use Standard Drinks/Week Comments No 0 (1 standard drink = 0.6 oz pur e alcohol) AUDIT-C Answer Date Recorded Q1: How often do you have a drink containing alcohol? Never 11/25/2023 Q2: How many drinks containi ng alcohol do you have on a typical day when you are drinking? Patient does not drink Q3: How often do you have si x or more drinks on one occasion? Never 11/25/2023 Personal Safety Answer Date Recorded Have you ever been in or are you currently in a harmful physical or emotional relationship or is someone making you feel afraid or unsafe? Denies 11/25/2023 Sex and Gender Information Value Date Recorded Sex Assigned at Not on file Legal Sex Male 1:26 PM EMT/PARAMEDIC Gender Identity Not on file Sexual Orientation Not on file Last Filed Vital Signs Vital Sign Reading Time Taken Comments Blood Pressure 119/49 11/25/2023 4:40 PM CDT Pulse 95 11/25/2023 4:40 PM CDT Temperature 37.2 C (99 F) 11/25/2023 3:20 PM CDT Respiratory Rate 26 11/25/2023 4:40 PM CDT Oxygen Saturation 99% 11/25/2023 4:40 PM CDT Inhaled Oxygen Concentration - - Weight 96.2 kg (212 lb) 02/26/2024 8:48 AM EMT/PARAMEDIC Height 182.9 cm (6') 11/25/2023 10:00 AM CDT Body Mass Index 28.75 11/25/2023 10:00 AM CDT Plan of Treatment Health Maintenance Due Date Last Done Comments Albumin Creatinine Ratio, Urine 1945 Depression Screening 1945 Hemoglobin A1C 1945 Hepatitis C Screening 1945 eGFR 1945 Dilated Eye Exam 1945 Foot Exam 1945 Lipid Panel 1945 DTaP/Tdap/Td Vaccine (1 - Tdap) 1956 Hepatitis B Screening 1963 Zoster Vaccine (1 of 2) 1995 Well Visit 65+ 2010 Pneumococcal vaccine 65+ (2 of 2 - PCV) 03/16/2013 03/16/2012 Covid-19 Vaccine (6 - 2024-2 6 season) 2024 01/28/2022, 09/03/2021, 12/21/2020, Additional history exists Influenza Vaccine (#1) 2024 , 11/29/2019, 12/28/2013, Additional history exists Fall Risk Assessment 11/24/2024 11/25/2023, 09/30/19 23 Medical Devices Implanted Type Area Rehabilitation Consultant Device Identifier Shelf Expiration Date Model / Serial / Lot Aptis Screw Locking 22 Mm 3.5 [id number] - [id number] Implanted:Qty: 1 on 11/25/2023 by Jose Vasquez MD at [facility] Screw Left: Radius APTIS UJ-[id number] / / [id number] Aptis 3.5 X 14 Mm Lock Screw Implanted:Qty: 1 on 11/25/2023 by Jose Vasquez MD at [facility] Screw Left: Radius APTIS UJ-[id number] / / [id number] Description:DISCONTINUED Aptis 3.5 X 16 Mm Lock Screw Implanted:Qty: 1 on 11/25/2023 by Jose Vasquez MD at [facility] Screw Left: Radius APTIS UJ-LSC16 / / [id number] Description:DISCONTINUE Aptis Plate Assembly Locking Distal Radio-Ulnar Size 10 [id number]-[id number] - S0 - [id number] Implanted:Qty: 1 on 11/25/2023 by Jose Vasquez MD at [facility] Left: Radius APTIS UJ-[id number] / 0 / Distal Radioulnar Joint Stem 1 Cm Extension Implanted:Qty: 1 on 11/25/2023 by Jose Vasquez MD at [facility] Left: Ulna APTIS 06/13/2025 [id number] / / [id number] Description:DISCONTINUE Explanted Type Area Rehabilitation Consultant Device Identifier Shelf Expiration Date Model / Serial / Lot Aptis Screw Cortical 16 Mm 3.5 [id number]-[id number] - [id number] Explanted:Qty: 1 on 11/25/2023 by Jose Vasquez MD at [facility] Screw Left: Radius APTIS UJ-[id number] / / [id number] Procedures Procedure Name Priority Date/Time Associated Diagnosis Comments XR RADIUS ULNA LEFT 2 VIEWS Schedule Routine, Read Routine (OP Routine) 01/13/2025 10:17 AM CDT Pain in left arm XR HAND LEFT 3 OR MORE VIEWS Schedule Routine, Read Routine (OP Routine) 01/13/2025 10:16 AM CDT Pain in left hand XR WRIST LEFT 3 OR MORE VIEWS Schedule Routine, Read Routine (OP Routine) 01/13/2025 10:16 AM CDT History of arthroplasty of left wrist OK ARTHROCENTESIS ASPIR&/INJ INTERM JT/BURS W/O US Routine 01/13/2025 10:00 AM CDT History of arthroplasty of left wrist from Last 3 Months Results * X-ray forearm left 2 views (01/13/2025 10:17 AM CDT) Anatomical Region Laterality Modality Upper Extremities, Forearm Left Compu katie Radiography 01/13/2025 10:5 7 AM CDT Impressions 01/13/2025 11:21 AM CDT 1. Postsurgical changes of distal radioulnar joint arthroplasty with intact hardware in unchanged alignment. 2. 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 Dictated by: Rashad Pastor M.D. The radiology attending physician has personally reviewed this study, and had reviewed and/or edited this written report and agrees with it. Electronically signed by: James Siddiqui M.D. Narrative 01/13/2025 11:21 AM CDT EXAMINATION: XR WRIST LEFT 3 OR MORE VIEWS, XR HAND LEFT 3 OR MORE VIEWS, XR RADIUS ULNA LEFT 2 VIEWS HISTORY: Radioulnar joint arthroplasty for positive ulnar variance COMPARISON: X-rays dated 05/31/2024. FINDINGS: Left radius and ulna: 4 views of the left radius and ulna were submitted for interpretation. Postsurgical changes of the distal radioulnar joint arthroplasty with ulnar intramedullary nail. The hardware construct is intact. No kurtis-implant osteolyses or fracture. The alignment is unchanged compared to 05/27/2024. There is prior radial head excision changes with mild elbow joint osteoarthritis. Left wrist: 4 views of the left wrist were submitted for interpretation. Left wrist ulnar sided soft tissue swelling. Surgical clips in the dorsal wrist. Mild radiocarpal joint osteoarthritis. Mild 1st metacarpophalangeal joint and triscaphe joint osteoarthritis. Vascular calcifications present. Left hand: 4 views of the left hand were submitted for interpretation. Moderate polyarticular interphalangeal joint osteoarthritis with small nonspecific cyst or erosions of the proximal interphalangeal joints. No acute fracture or dislocation. Procedure Note James Siddiqui MD PhD - 01/13/2025 EXAMINATION: XR WRIST LEFT 3 OR MORE VIEWS, XR HAND LEFT 3 OR MORE VIEWS, XR RADIUS ULNA LEFT 2 VIEWS HISTORY: Radioulnar joint arthroplasty for positive ulnar variance COMPARISON: X-rays dated 05/31/2024. FINDINGS: Left radius and ulna: 4 views of the left radius and ulna were submitted for interpretation. Postsurgical changes of the distal radioulnar joint arthroplasty with ulnar intramedullary nail. The hardware construct is intact. No kurtis-implant osteolyses or fracture. The alignment is unchanged compared to 05/27/2024. There is prior radial head excision changes with mild elbow joint osteoarthritis. Left wrist: 4 views of the left wrist were submitted for interpretation. Left wrist ulnar sided soft tissue swelling. Surgical clips in the dorsal wrist. Mild radiocarpal joint osteoarthritis. Mild 1st metacarpophalangeal joint and triscaphe joint osteoarthritis. Vascular calcifications present. Left hand: 4 views of the left hand were submitted for interpretation. Moderate polyarticular interphalangeal joint osteoarthritis with small nonspecific cyst or erosions of the proximal interphalangeal joints. No acute fracture or dislocation. IMPRESSION: 1. Postsurgical changes of distal radioulnar joint arthroplasty with intact hardware in unchanged alignment. 2. 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 Dictated by: Rashad Pastor M.D. The radiology attending physician has personally reviewed this study, and had reviewed and/or edited this written report and agrees with it. Electronically signed by: James Siddiqui M.D. Jose Vasquez MD [facility] [place] XR PROCEDURES Final Resul t * X-ray hand left 3+ views (01/13/2025 10:16 AM CDT) Anatomical Region Laterality Modality Upper Extremities, Hand Left Computed Radiography 01/13/2025 10:5 7 AM CDT Impressions 01/13/2025 11:21 AM CDT 1. Postsurgical changes of distal radioulnar joint arthroplasty with intact hardware in unchanged alignment. 2. 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 Dictated by: Rashad Pastor M.D. The radiology attending physician has personally reviewed this study, and had reviewed and/or edited this written report and agrees with it. Electronically signed by: James Siddiqui M.D. Narrative 01/13/2025 11:21 AM CDT EXAMINATION: XR WRIST LEFT 3 OR MORE VIEWS, XR HAND LEFT 3 OR MORE VIEWS, XR RADIUS ULNA LEFT 2 VIEWS HISTORY: Radioulnar joint arthroplasty for positive ulnar variance COMPARISON: X-rays dated 05/31/2024. FINDINGS: Left radius and ulna: 4 views of the left radius and ulna were submitted for interpretation. Postsurgical changes of the distal radioulnar joint arthroplasty with ulnar intramedullary nail. The hardware construct is intact. No kurtis-implant osteolyses or fracture. The alignment is unchanged compared to 05/27/2024. There is prior radial head excision changes with mild elbow joint osteoarthritis. Left wrist: 4 views of the left wrist were submitted for interpretation. Left wrist ulnar sided soft tissue swelling. Surgical clips in the dorsal wrist. Mild radiocarpal joint osteoarthritis. Mild 1st metacarpophalangeal joint and triscaphe joint osteoarthritis. Vascular calcifications present. Left hand: 4 views of the left hand were submitted for interpretation. Moderate polyarticular interphalangeal joint osteoarthritis with small nonspecific cyst or erosions of the proximal interphalangeal joints. No acute fracture or dislocation. Procedure Note James Siddiqui MD PhD - 01/13/2025 EXAMINATION: XR WRIST LEFT 3 OR MORE VIEWS, XR HAND LEFT 3 OR MORE VIEWS, XR RADIUS ULNA LEFT 2 VIEWS HISTORY: Radioulnar joint arthroplasty for positive ulnar variance COMPARISON: X-rays dated 05/31/2024. FINDINGS: Left radius and ulna: 4 views of the left radius and ulna were submitted for interpretation. Postsurgical changes of the distal radioulnar joint arthroplasty with ulnar intramedullary nail. The hardware construct is intact. No kurtis-implant osteolyses or fracture. The alignment is unchanged compared to 05/27/2024. There is prior radial head excision changes with mild elbow joint osteoarthritis. Left wrist: 4 views of the left wrist were submitted for interpretation. Left wrist ulnar sided soft tissue swelling. Surgical clips in the dorsal wrist. Mild radiocarpal joint osteoarthritis. Mild 1st metacarpophalangeal joint and triscaphe joint osteoarthritis. Vascular calcifications present. Left hand: 4 views of the left hand were submitted for interpretation. Moderate polyarticular interphalangeal joint osteoarthritis with small nonspecific cyst or erosions of the proximal interphalangeal joints. No acute fracture or dislocation. IMPRESSION: 1. Postsurgical changes of distal radioulnar joint arthroplasty with intact hardware in unchanged alignment. 2. 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 Dictated by: Rashad Pastor M.D. The radiology attending physician has personally reviewed this study, and had reviewed and/or edited this written report and agrees with it. Electronically signed by: James Siddiqui M.D. Jose Vasquez MD IMG XR PROCEDURES Final Resul t * X-ray wrist left 3+ views (01/13/2025 10:16 AM CDT) Anatomical Region Laterality Modality Upper Extremities, Wrist Left Compute d Radiography 01/13/2025 10:5 7 AM CDT Impressions 01/13/2025 11:21 AM CDT 1. Postsurgical changes of distal radioulnar joint arthroplasty with intact hardware in unchanged alignment. 2. 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 Dictated by: Rashad Pastor M.D. The radiology attending physician has personally reviewed this study, and had reviewed and/or edited this written report and agrees with it. Electronically signed by: James Siddiqui M.D. Narrative 01/13/2025 11:21 AM CDT EXAMINATION: XR WRIST LEFT 3 OR MORE VIEWS, XR HAND LEFT 3 OR MORE VIEWS, XR RADIUS ULNA LEFT 2 VIEWS HISTORY: Radioulnar joint arthroplasty for positive ulnar variance COMPARISON: X-rays dated 05/31/2024. FINDINGS: Left radius and ulna: 4 views of the left radius and ulna were submitted for interpretation. Postsurgical changes of the distal radioulnar joint arthroplasty with ulnar intramedullary nail. The hardware construct is intact. No kurtis-implant osteolyses or fracture. The alignment is unchanged compared to 05/27/2024. There is prior radial head excision changes with mild elbow joint osteoarthritis. Left wrist: 4 views of the left wrist were submitted for interpretation. Left wrist ulnar sided soft tissue swelling. Surgical clips in the dorsal wrist. Mild radiocarpal joint osteoarthritis. Mild 1st metacarpophalangeal joint and triscaphe joint osteoarthritis. Vascular calcifications present. Left hand: 4 views of the left hand were submitted for interpretation. Moderate polyarticular interphalangeal joint osteoarthritis with small nonspecific cyst or erosions of the proximal interphalangeal joints. No acute fracture or dislocation. Procedure Note James Siddiqui MD PhD - 01/13/2025 EXAMINATION: XR WRIST LEFT 3 OR MORE VIEWS, XR HAND LEFT 3 OR MORE VIEWS, XR RADIUS ULNA LEFT 2 VIEWS HISTORY: Radioulnar joint arthroplasty for positive ulnar variance COMPARISON: X-rays dated 05/31/2024. FINDINGS: Left radius and ulna: 4 views of the left radius and ulna were submitted for interpretation. Postsurgical changes of the distal radioulnar joint arthroplasty with ulnar intramedullary nail. The hardware construct is intact. No kurtis-implant osteolyses or fracture. The alignment is unchanged compared to 05/27/2024. There is prior radial head excision changes with mild elbow joint osteoarthritis. Left wrist: 4 views of the left wrist were submitted for interpretation. Left wrist ulnar sided soft tissue swelling. Surgical clips in the dorsal wrist. Mild radiocarpal joint osteoarthritis. Mild 1st metacarpophalangeal joint and triscaphe joint osteoarthritis. Vascular calcifications present. Left hand: 4 views of the left hand were submitted for interpretation. Moderate polyarticular interphalangeal joint osteoarthritis with small nonspecific cyst or erosions of the proximal interphalangeal joints. No acute fracture or dislocation. IMPRESSION: 1. Postsurgical changes of distal radioulnar joint arthroplasty with intact hardware in unchanged alignment. 2. 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 Dictated by: Rashad Pastor M.D. The radiology attending physician has personally reviewed this study, and had reviewed and/or edited this written report and agrees with it. Electronically signed by: James Siddiqui M.D. Jose Vasquez MD IMG XR PROCEDURES Final Resul t * OK ARTHROCENTESIS ASPIR&/INJ INTERM JT/BURS W/O US (01/13/2025 10:00 AM CDT) Narrative Jose Vasquez MD - 01/13/2025 10:00 AM CDT Jose Vasquez MD 01/13/2025 12:32 PM Medium Joint Injection: L radiocarpal Performed by: Jose Vasquez MD Authorized by: Jose Vasquez MD Medium Joint Injection/Aspiration: Consent Given by: Patient Timeout: prior to procedure the correct patient, procedure, and site was verified Verbal consent obtained?: Yes Supporting Documentation: Indications: Pain Procedure Details: Location: Wrist Site: L radiocarpal Approach: Dorsal Medications: 1 mL lidocaine 10 mg/mL (1 %); 10 mg triamcinolone 40 mg/mL Patient tolerance: Patient tolerated the procedure well with no immediate complications Jose Vasquez MD IN CLINIC/BEDSIDE ORDERABLES Final Result from Last 3 Months Insurance [facility] MEDICARE ADVANTAGE [employer] [facility] MEDICARE ADVANTAGE Advance Directives For more information, please contact: [phone] * Full Code (Latest Code Status on File) Date Activated Date Inactivated Comments 04/23/2018 10:48 AM 04/23/2018 7:41 PM Care Teams Planning Associate Relationship Specialty Start Date End Date Maik Velazquez MD [address] [place] [address] PCP - General Family Medicine 01/16/22
--- OUTSIDE RECORDS SUMMARY | 2025-02-28 13:35 | XMS_ITS | Patient Health Record ---
Author Organization [facility] Address [address] [place] [address] Care Team Providers Care Aircraft Avionics Technician Name Role Phone Steven Montoya Unavailable [phone] Reason For Referral No Information Medications Medication SIG (Take, Route, Frequency, Duration) Notes Start Date End Date Status Calcitriol 0.25 MCG TAKE 1 CAPSULE BY MO UTH EVERY OTHER DAY; Duration: 30 Active Magnesium Oxide -Mg Supplement 400 (240 Mg) MG TAKE 1 TABLET BY MOUTH TWICE A DAY; Duration: 30 Active amLODIPine Besylate 2.5 MG 1 tablet Oral ly Once a day; Duration: 90 days 04/03/2023 Active Vitamin D (Ergocalciferol) 1.25 MG (66363 UT) TAKE 1 CAPSULE BY MOUTH EVERY OTHER WEEK; Duration: 28 Active Social History Sex Assigned At : Social History Observation Description Sex Assigned At Male Problems Problem Type SNOMED Code ICD Code Onset Dates Problem Status W/U Status Risk Notes Problem Hyperglycemia due to type 2 diabetes mellitus (954786055007524) Type 2 diabetes mellitus with hyperglycemia (E11.65) Active confirmed Problem Hypo-osmolality and or hyponatremia (780511275) Hypo-osmolality and hyponatremia (E87.1) Active confirmed Problem Hyperkalemia (16353149) Hyperkalemia (E87.5) Active confirmed Problem Post-traumatic stress disorder (34883247) Post-traumatic stress disorder, unspecified (F43.10) Active confirmed Problem Systolic heart failure (959159961) Unspecified systolic (congestive) heart failure (I50.20) Active confirmed Problem Gastro-esophageal reflux disease without esophagitis (272889426) Gastro-esophageal reflux disease without esophagitis (K21.9) Active confirmed Problem Renal osteodystrophy (76739872) Renal osteodystrophy (N25.0) Active confirmed Problem Abdominal pain (52033945) Unspecified abdominal pain (R10.9) Active confirmed Problem Proteinuria (19407006) Proteinuria, unspecified (R80.9) Active confirmed Problem Essential hypertension (31950072) Essential hypertension (I10) Active confirmed Problem Chronic kidney disease stage 3A (disorder) (754879186) Chronic kidney disease, stage 3a (N18.31) Active confirmed Encounters Encounter Location Date Provider Diagnosis [facility] [address] [place] [address] 04/20/2024 Steven Montoya Chronic kidney disea se, stage 3a N18.31 ; Essential hypertension I10 ; Hypo-osmolality and hyponatremia E87.1 ; Unspecified systolic (congestive) heart failure I50.20 ; Glycosuria R81 ; Hyperkalemia E87.5 and Gastro-esophageal reflux disease without esophagitis K21.9 [facility] [address] [place] [address] 06/22/2024 Steven Montoya Chronic kidney disea se, stage 3a N18.31 ; Essential hypertension I10 ; Unspecified systolic (congestive) heart failure I50.20 ; Renal osteodystrophy N25.0 ; Proteinuria, unspecified R80.9 ; Unspecified abdominal pain R10.9 ; Type 2 diabetes mellitus with hyperglycemia E11.65 ; Gastro-esophageal reflux disease without esophagitis K21.9 ; Hyperkalemia E87.5 ; Hypo-osmolality and hyponatremia E87.1 and Post-traumatic stress disorder, unspecified F43.10 [facility] [address] [place] [address] 03/22/2024 Steven Montoya [facility] [address] [address] 04/20/2024 Steven Montoya Assessments Encounter Date Diagnosis (ICD Code) Assessment Notes Treatment Notes Treatment Clinical Notes Section Notes 04/20/2024 Essential hypertension (ICD-10 - I10) 04/20/2024 Chronic kidney disease, stage 3a (ICD-10 - N18.31) 06/22/2024 Chronic kidney disease, stage 3a (ICD-10 - N18.31) 06/22/2024 Essential hypertension (ICD-10 - I10) 04/20/2024 Hypo-osmolality and hyponatremia (ICD-10 - E87.1) 04/20/2024 Unspecified systolic (congestive) heart failure (ICD-10 - I50.20) 06/22/2024 Unspecified systolic (congestive) heart failure (ICD-10 - I50.20) 06/22/2024 Renal osteodystrophy (ICD-10 - N25.0) 04/20/2024 Glycosuria (ICD-10 - R81) 04/20/2024 Hyperkalemia (ICD-10 - E87.5) 06/22/2024 Proteinuria, unspecified (ICD-10 - R80.9) 06/22/2024 Unspecified abdominal pain (ICD-10 - R10.9) 04/20/2024 Gastro-esophageal reflux disease without esophagitis (ICD-10 - K21.9) 06/22/2024 Type 2 diabetes mellitus with hyperglycemia (ICD-10 - E11.65) 06/22/2024 Gastro-esophageal reflux disease without esophagitis (ICD-10 - K21.9) 06/22/2024 Hyperkalemia (ICD-10 - E87.5) 06/22/2024 Hypo-osmolality and hyponatremia (ICD-10 - E87.1) 06/22/2024 Post-traumatic stress disorder, unspecified (ICD-10 - F43.10) Plan Of Treatment No Information
--- OUTSIDE RECORDS SUMMARY | 2025-02-28 13:35 | XMS_ITS | Patient Health Record ---
Author Organization [facility] [email or web address] Address [address] [place] [address] Care Team Providers [place] Adviser Name Role Phone Maik Velazquez MD Primary Care Provider Kenyatta Ramos Unavailable [phone] Allergies Allergen (clinical drug ingredient) Drug/Non Drug Allergy documented on EMR Reaction Allergy Type Onset Date Status morphine Morphine Unknown Drug Allergy 06/15/2023 Active Reason For Referral No Information Medications Medication SIG (Take, Route, Frequency, Duration) Notes Start Date End Date Status ALPRAZolam 0.25 MG Tablet Oral 06/15/2023 Active Trospium Chloride ER 60 mg Capsule Extended Release 24 Hour Oral 06/15/2023 Active Omeprazole 20 MG Capsule Delayed Release Oral 06/15/2023 Active Ozempic (0.25 or 0.5 MG/DOSE) 2 MG/3ML Solution Pen-injector Subcutaneous *Pick strength-form from [facility] for eRX* 06/15/2023 Active LUER-CHRIS SYRINGE-NEEDLE 3 mL 22 x 1 1/2 SYRINGE, EMPTY DISPOSABLE MISCELLANEOUS *Reorder from [facility] for eRx and Interaction Alerts* 06/15/2023 Active oxyCODONE HCl 5 MG Tablet Oral 06/15/2023 Active Meclizine HCl 25 MG Tablet Oral 06/15/2023 Active amLODIPine Besylate 10 MG Tablet Oral 06/15/2023 Not-Taking ProAir HFA 108 (90 Base) MCG/ACT Aerosol Solution Inhalation 06/15/2023 Active Lisinopril 20 MG Tablet Oral 06/15/2023 Active ONETOUCH DELICA PLUS LANCING DEVICE KIT *Reorder from [facility] for eRx and Interaction Alerts* 06/15/2023 Active Crestor 10 MG Tablet 1 tablet Orally Once a day Active OneTouch Ultra Strip In Vitro 06/15/2023 Active LUER-CHRIS SYRINGE-NEEDLE 5 mL 22 gauge x 1 1/2 SYRINGE, EMPTY DISPOSABLE MISCELLANEOUS *Reorder from [facility] for eRx and Interaction Alerts* 06/15/2023 Active Sertraline HCl 100 MG Tablet TAKE 1 TABLET BY MOUTH DAILY Oral Once a day; Duration: 30 days Active Tamsulosin HCl 0.4 MG Capsule Oral 06/15/2023 Active Memantine HCl 10 MG Tablet 1 tablet Orally Once a day; Duration: 30 days NO PA needed Active Omeprazole 40 MG Capsule Delayed Release Oral 06/15/2023 Active Xtampza ER 36 mg Capsule ER 12 Hour Abuse-Deterrent Oral 06/15/2023 Active Diclofenac Sodium 1% Gel Transdermal 06/15/2023 Active tiZANidine HCl 4 MG Tablet Oral 06/15/2023 Active Mupirocin 2% Ointment External 06/15/2023 Active Jardiance 25 MG Tablet Oral 06/15/2023 Active Finasteride 5 MG Tablet Oral 06/15/2023 Active Losartan Potassium 100 MG Tablet Oral 06/15/2023 Active Carvedilol 25 MG Tablet Oral 06/15/2023 Active Testosterone 1 % (50 mg/5 gram) Gel Transdermal *Pick strength-form from [facility] for eRX* 06/15/2023 Active OneTouch Delica Plus [id number] Miscellaneous 06/15/2023 Active Calcitriol 0.25 MCG Capsule Oral 06/15/2023 Active LORazepam 1 MG Tablet Oral 06/15/2023 Active Silver sulfADIAZINE 1 % Cream External 06/15/2023 Active Atorvastatin Calcium 40 MG Tablet Oral 06/15/2023 Active Myrbetriq 25 MG Tablet Extended Release 24 Hour Oral 06/15/2023 Active Sertraline HCl 100 MG Tablet 1 tablet Orally Once a day; Duration: 30 days 11/22/2024 Active Memantine HCl 10 MG Tablet 1 tablet Orally Once a day; Duration: 30 days 11/22/2024 Active DULoxetine HCl 30 MG Capsule Delayed Release Particles 1 capsule Oral Once a day; Duration: 30 days Active Immunizations Vaccine Route Administration Date Status Comme nts Influenza virus vaccine, quadrivalent (IIV4), split virus, 0.25 mL dosage Unknown 11/14/2020 Administered Influenza virus vaccine, quadrivalent (IIV4), split virus, 0.25 mL dosage Unknown 12/17/2021 Administered Moderna Covid-19 Vaccine 1st dose Unknown 09/03/2021 Ad ministered Pfizer Biontech Covid-19 Vac cine 2nd dose Unknown 05/10/2020 Administered Pfizer Biontech Covid-19 Vac cine 2nd dose Unknown 05/31/2020 Administered Pfizer Biontech Covid-19 Vac cine 2nd dose Unknown 12/21/2020 Administered Social History Tobacco Use: Social History Observation Description Date Details (start date - stop date) Never Smoker NA - NA Sex Assigned At : Social History Observation Description Sex Assigned At Male Social History Tobacco Use: Social Info Question Answer Notes Tobacco Control (Standard) Tobacco use: Nonsmoker Additional Details Category Social Info Options Details Migrated Social History Migrated Social History Alcohol Intake: None 06/11/2021,Tobacco Years: Former smoker 06/11/2021,Smoking Status: 30 04/17/2023 Problems Problem Type SNOMED Code ICD Code Onset Dates Problem Status W/U Status Risk Notes Problem Primary insomnia (3867538) Primary insomnia (F51.01) Active confirmed Problem Alzheimer's disease with late onset (284347950) Alzheimer's disease with late onset (G30.1) Active confirmed Problem Generalized anxiety disorder (88710258) RHYS (generalized anxiety disorder) (F41.1) Active confirmed Problem Moderate recurrent major depression (65380337) MDD (major depressive disorder), recurrent episode, moderate (F33.1) Active confirmed Problem Mild recurrent major depression (60175191) MDD (major depressive disorder), recurrent episode, mild (F33.0) Active confirmed Vital Signs Heart Rate 72 /min 11/22/2024 Respiratory Rate 18 /min 11/22/2024 Height-cm 182.88 cm 11/22/2024 Blood pressure diastolic 69 mm Hg 11/22/2024 Weight-kg 105.14 kg 11/22/2024 Height 72.00 in 11/22/2024 Blood pressure systolic 124 mm Hg 11/22/2024 Weight 231.8 lbs 11/22/2024 BMI 31.43 kg/m2 11/22/2024 Encounters Encounter Location Date Provider Diagnosis [facility] [address] [place] [address] 04/01/2024 Kenyatta Mota [facility] [employer] [facility] [address] [place] [address] 05/12/2024 Kenyatta Nakul MDD (major depressive disorder), recurrent episode, mild F33.0 ; RHYS (generalized anxiety disorder) F41.1 ; Primary insomnia F51.01 and Alzheimer's disease with late onset G30.1 [facility] [employer] [facility] [address] [place] [address] 11/22/2024 Kenyatta Nakul RHYS (generalized anxiety disorder) F41.1 ; MDD (major depressive disorder), recurrent episode, moderate F33.1 ; Primary insomnia F51.01 and Alzheimer's disease with late onset G30.1 Assessments Encounter Date Diagnosis (ICD Code) Assessment Notes Treatment Notes Treatment Clinical Notes Section Notes 05/12/2024 MDD (major depressive disorder), recurrent episode, [...] to therapy refer to PCP- [facility] : [facility] 2. Generalized anxiety disorder -Zoloft 100 mg daily for depression and anxiety no control substance prescribed by SONY 3. Primary degenerative dementia of the Alzheimer type, senile onset -hx Patient has looked into wellness assistant living [facility], [facility], [facility], [place] area and wants to stay where he is living at this time Care planning reviewed [facility] SLUMS= 10/06 SLUMS= 28 05/12/24 patient would like to decrease Namenda 10 mg daily- kidney disease HX Aricept stopped at hospital and caused diarrhea discuss medications and taper down dose r/t number rx he is on and patient reported improved memory on rx Pharmacy: [facility] 4. 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 major depression - re-start Cymbalta 30 mg a day- for depression and anxiety - Patient reported stage 3 kidney disease see kidney specialist and labs discuss kidney disease rx Zoloft 100 mg [...] to therapy refer to PCP- RLS : [facility] 2. Generalized anxiety disorder -Zoloft 100 mg daily for depression and anxiety no control substance prescribed by SONY 3. Primary degenerative dementia of the Alzheimer type, senile onset -hx Patient has looked into wellness assistant living [facility], [facility], [facility], [place] area and wants to stay where he is living at this time Care planning reviewed [place] [facility] SLUMS= 20 10/06 SLUMS= 28 05/12/24 Namenda 10 mg daily- kidney disease HX Aricept stopped at hospital and caused diarrhea discuss medications and taper down dose r/t number rx he is on and patient reported improved memory on rx Pharmacy: [facility] 4. 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 major depression - re-start Cymbalta 30 mg a day- for depression and anxiety - Patient reported stage 3 kidney disease see kidney specialist and labs discuss kidney disease rx Zoloft 100 mg [...] to therapy refer to PCP- RLS : [facility] 2. Generalized anxiety disorder -Zoloft 100 mg daily for depression and anxiety no control substance prescribed by SONY 3. Primary degenerative dementia of the Alzheimer type, senile onset -hx Patient has looked into wellness assistant living [facility], [facility], [facility], [place] area and wants to stay where he is living at this time Care planning reviewed [place] [facility] SLUMS= 10/06 SLUMS= 28 05/12/24 Namenda 10 mg daily- kidney disease HX Aricept stopped at hospital and caused diarrhea discuss medications and taper down dose r/t number rx he is on and patient reported improved memory on rx Pharmacy: [facility] 4. 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 major depression - re-start Cymbalta 30 mg a day- for depression and anxiety - Patient reported stage 3 kidney disease see kidney specialist and labs discuss kidney disease rx Zoloft 100 mg [...] to therapy refer to PCP- RLS : [facility] 2. Generalized anxiety disorder -Zoloft 100 mg daily for depression and anxiety no control substance prescribed by SONY 3. Primary degenerative dementia of the Alzheimer type, senile onset -hx Patient has looked into wellness assistant living [facility], [facility], [facility], [place] area and wants to stay where he is living at this time Care planning reviewed [place] [facility] SLUMS= 20 10/06 SLUMS= 28 05/12/24 Namenda 10 mg daily- kidney disease HX Aricept stopped at hospital and caused diarrhea discuss medications and taper down dose r/t number rx he is on and patient reported improved memory on rx Pharmacy: [facility] 4. Insomnia disorder related to another mental [...] to therapy refer to PCP- RLS : [facility] 2. Generalized anxiety disorder -Zoloft 100 mg daily for depression and anxiety no control substance prescribed by SONY 3. Primary degenerative dementia of the Alzheimer type, senile onset -hx Patient has looked into wellness assistant living [facility], [facility], [facility], [place] area and wants to stay where he is living at this time Care planning reviewed [place] [facility] SLUMS= 20 10/06 SLUMS= 28 05/12/24 patient would like to decrease Namenda 10 mg daily- kidney disease HX Aricept stopped at hospital and caused diarrhea discuss medications and taper down dose r/t number rx he is on and patient reported improved memory on rx Pharmacy: [facility] 4. Insomnia disorder related to another mental [...] labs PCP Refer to PCP - RLS 11/22/2024 Alzheimer's disease with late onset (ICD-10 - G30.1) continue medications 1. major depression - re-start Cymbalta 30 mg a day- for depression and anxiety - Patient reported stage 3 kidney disease see kidney specialist and labs discuss kidney disease rx Zoloft 100 mg [...] to therapy refer to PCP- RLS : [facility] 2. Generalized anxiety disorder -Zoloft 100 mg daily for depression and anxiety no control substance prescribed by SONY 3. Primary degenerative dementia of the Alzheimer type, senile onset -hx Patient has looked into wellness assistant living [facility], [facility], [facility], [place] area and wants to stay where he is living at this time Care planning reviewed [place] [facility] SLUMS= 20 10/06 SLUMS= 28 05/12/24 Namenda 10 mg daily- kidney disease HX Aricept stopped at hospital and caused diarrhea discuss medications and taper down dose r/t number rx he is on and patient reported improved memory on rx Pharmacy: [facility] 4. Insomnia disorder related to another mental [...] to therapy refer to PCP- RLS : [facility] 2. Generalized anxiety disorder -Zoloft 100 mg daily for depression and anxiety no control substance prescribed by SONY 3. Primary degenerative dementia of the Alzheimer type, senile onset -hx Patient has looked into wellness assistant living [facility], [facility], [facility], [place] area and wants to stay where he is living at this time Care planning reviewed [facility] SLUMS= 20 10/06 SLUMS= 28 05/12/24 patient would like to decrease Namenda 10 mg daily- kidney disease HX Aricept stopped at hospital and caused diarrhea discuss medications and taper down dose r/t number rx he is on and patient reported improved memory on rx Pharmacy: [facility] 4. Insomnia disorder related to another mental [...] to therapy refer to PCP- RLS : [facility] 2. Generalized anxiety disorder -Zoloft 100 mg daily for depression and anxiety no control substance prescribed by SONY 3. Primary degenerative dementia of the Alzheimer type, senile onset -hx Patient has looked into wellness assistant living [facility], [facility], [facility], [place] area and wants to stay where he is living at this time Care planning reviewed [place] [facility] SLUMS= 20 10/06 SLUMS= 28 05/12/24 patient would like to decrease Namenda 10 mg daily- kidney disease HX Aricept stopped at hospital and caused diarrhea discuss medications and taper down dose r/t number rx he is on and patient reported improved memory on rx Pharmacy: [facility] 4. Insomnia disorder related to another mental [...] RLS 05/12/2024 Other referral to the local [facility] or national office of the Alzheimer's Association ( ; http://www.alz. org), the Alzheimer's Disease Education and Referral Center (ADENE) ( ; http://www.robin. nih.gov/Alzheim ers/), referral to the local [facility] or national office of the Alzheimer's Association ( ; http://www.alz. org), the Alzheimer's Disease Education and Referral Center (ADENE) ( ; http://www.robin. nih.gov/Alzheim ers/), Notes: referral to the local [facility] or national office of the Alzheimer's Association ( ; http://www.alz. org), the Alzheimer's Disease Education and Referral Center (ADENE) ( ; http://www.robin. nih.gov/Alzheim ers/), continue medications 1. major depression - D/C [...] to therapy refer to PCP- RLS : [facility] 2. Generalized anxiety disorder -Zoloft 100 mg daily for depression and anxiety no control substance prescribed by SONY 3. Primary degenerative dementia of the Alzheimer type, senile onset -hx Patient has looked into wellness assistant living [facility], [facility], [facility], Or [place] area and wants to stay where he is living at this time Care planning reviewed [place] [facility] SLUMS= 20 10/06 SLUMS= 28 05/12/24 patient would like to decrease Namenda 10 mg daily- kidney disease HX Aricept stopped at hospital and caused diarrhea discuss medications and taper down dose r/t number rx he is on and patient reported improved memory on rx Pharmacy: [facility] 4. Insomnia disorder related to another mental [...] labs PCP Refer to PCP - RLS 11/22/2024 Other referral to the local chapter or national office of the Alzheimer's Association ( ; http://www.alz. org), the Alzheimer's Disease Education and Referral Center (ADEAR) ( ; http://www.robin. nih.gov/Alzheim ers/), referral to the local chapter or national office of the Alzheimer's Association ( ; http://www.alz. org), the Alzheimer's Disease Education and Referral Center (ADEAR) ( ; http://www.robin. nih.gov/Alzheim ers/), Notes: referral to the local chapter or national office of the Alzheimer's Association ( ; http://www.alz. org), the Alzheimer's Disease Education and Referral Center (ADEAR) ( ; http://www.robin. nih.gov/Alzheim ers/), continue medications 1. major depression - re-start Cymbalta 30 mg a day- for depression and anxiety - Patient reported stage 3 kidney disease see kidney specialist and labs discuss kidney disease rx Zoloft 100 mg [...] to therapy refer to PCP- RLS : [facility] 2. Generalized anxiety disorder -Zoloft 100 mg daily for depression and anxiety no control substance prescribed by SONY 3. Primary degenerative dementia of the Alzheimer type, senile onset -hx Patient has looked into wellness assistant [facility], [facility], [facility], Or [place] area and wants to stay where he is living at this time Care planning reviewed [place] [facility] SLUMS= 20 10/06 SLUMS= 28 05/12/24 Namenda 10 mg daily- kidney disease HX Aricept stopped at hospital and caused diarrhea discuss medications and taper down dose r/t number rx he is on and patient reported improved memory on rx Pharmacy: [facility] 4. Insomnia disorder related to another mental [...] Provider Name:Kenyatta Mota , 03/29/2025 01:00:00 PM, [address], [address], [place], [address], Insurance Providers Payer Name Payer Address Payer Phone Subscriber Number Group Number Insured Name Patient Relationship to Insured Coverage Start Date Coverage End Date [employer] Medicare Replacement/ Advantage - Ppo [address] [address] [place] [address] [id number] COREY PACHECO Self - patient is the insured [place] [address] [address] [facility] [place] [address] [id number] COREY PACHECO Self - patient is the insured Medical (General) History Medical History History ICD Code Problems: Chronic post-traumatic stress disorder Generalized anxiety disorder History of SARS-CoV-2 Insomnia disorder related to another men amanda disorder Memory impairment Mild recurrent major depression Primary degenerative dementia of the Alz heimer type, senile onset Severe recurrent major depression Severe recurrent major depression withou t psychotic features , US Upper Extremity Left Limi katie (05/31/2024) 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 Absent left 4th extensor digitorum tendon in the finger with visualization of the tendon at the level of the wrist, where it becomes extremely atrophic at the level of the metacarpal base. X-ray wrist left 3+ views (05/27/2024) Unchanged distal radioulnar joint arthroplasty. Distal ulna resection and distal radial ulnar arthroplasty redemonstrated. Instrumentation intact. 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 No acute fracture. Surgical History Surgery Date(Month/Year) Xcapsl ctrc rmvl cplx wo ecp (52736) Heart surgery
[2025-02-28 13:41] LABS: Prostate Specific Antigen 0.3 ng/mL (< OR = 4.0); Thyroid Stimulating Hormone 5.010 uIU/mL (0.465-4.680)
[2025-03-02 02:07] LABS: Free Testosterone (Direct) 7.4 pg/mL (6.6-18.1)
== END 2025-02-28 11:11 | disposition home or self-care (01) ==
PROVIDERS: PCP Family Medicine; Visit Provider Internal Medicine
DX: Z12.5 Encounter for screening for malignant neoplasm of prostate (principal); I12.9 Hypertensive chronic kidney disease with stage 1 through stage 4 chronic kidney disease, or unspecified chronic kidney disease; I10 Essential (primary) hypertension; E11.22 Type 2 diabetes mellitus with diabetic chronic kidney disease; N18.30 Chronic kidney disease, stage 3 unspecified; E55.9 Vitamin D deficiency, unspecified; E29.1 Testicular hypofunction; E66.9 Obesity, unspecified
CPT/HCPCS: 36415; 80061; 84153; 84402; 84403; 84439; 84443; 85027; G0103